=== PATIENT | male | born 1955 | race Caucasian/White ===

== ENCOUNTER → 2016-10-18 | Outpatient (CLI) | payer OTHER ==
[~2016-10-18] MED LIST: ALLO100T PO; CLON.1 PO; CLON0.1T PO; DULC100C PO; FURO20TA PO; GLIP5TAB8 PO; GLUC750T13; HYDR25TA35 PO; PRAV40TA2 PO
[2016-10-18 13:47] LABS: ANION GAP 7 MEQ/L (5-15); BICARBONATE 29.2 MEQ/L (21.0-32.0); BLOOD UREA NITROGEN 26 MG/DL (7-18); CHLORIDE 103 MEQ/L (98-107); GLOMERULAR FILTRATION RATE 24 ML/MIN (>89); POTASSIUM 4.5 MEQ/L (3.5-5.1); SODIUM (NA) 139 MEQ/L (136-145)
[2016-10-18 17:20] LABS: HEMOGLOBIN A1b 2.5 %; HEMOGLOBIN Ao 80.6 %; HEMOGLOBIN P3 4.7 %
== END ==
LOC: CLAB 13:07
PROVIDERS: ATTEND Physician Assistant Medical
DX: N18.9 Chronic kidney disease, unspecified (principal); E11.9 Type 2 diabetes mellitus without complications
CPT/HCPCS: 36415; 80048; 83036

== ENCOUNTER → 2016-10-24 | Outpatient (CLI) | payer OTHER ==
[~2016-10-24] MED LIST changes: -CLON.1 PO
== END ==
LOC: CLAB 13:17
PROVIDERS: ATTEND Nurse Practitioner Family
DX: E78.5 Hyperlipidemia, unspecified (principal)
CPT/HCPCS: 36415; 80061

== ENCOUNTER → 2016-12-06 | Outpatient (CLI) | payer OTHER ==
[~2016-12-06] MED LIST changes: +ATEN50TA PO; +CALC0.5C6 PO; +FURO80TA PO; +GEMF600T PO; +LISI40TA PO
[2016-12-06 13:18] LABS: ALKALINE PHOSPHATASE 74 U/L (45-117); ALT (GPT) 22 U/L (12-78); ANION GAP 12 MEQ/L (5-15); AST (GOT) 12 U/L (15-37); BICARBONATE 26.9 MEQ/L (21.0-32.0); BLOOD UREA NITROGEN 45 MG/DL (7-18); CHLORIDE 86 MEQ/L (98-107); GLOMERULAR FILTRATION RATE 18 ML/MIN (>89); GLUCOSE,FASTING 132 MG/DL (74-99); POTASSIUM 3.7 MEQ/L (3.5-5.1); SODIUM (NA) 125 MEQ/L (136-145); TOTAL BILIRUBIN ADULT 0.4 MG/DL (0.2-1.0)
[2016-12-06 13:54] LABS: CREAT 24 TIMED 48.9 MG/DL; URINE TOTAL PROTEIN TIMED 156.7 MG/DL
== END ==
LOC: CLAB 12:15
PROVIDERS: ATTEND Internal Medicine Nephrology
DX: R80.9 Proteinuria, unspecified (principal); E78.5 Hyperlipidemia, unspecified; N25.81 Secondary hyperparathyroidism of renal origin; E78.4 Other hyperlipidemia; I12.9 Hypertensive chronic kidney disease with stage 1 through stage 4 chronic kidney disease, or unspecified chronic kidney disease; N18.3 Chronic kidney disease, stage 3 (moderate); E11.22 Type 2 diabetes mellitus with diabetic chronic kidney disease
CPT/HCPCS: 36415; 80053; 82575; 83970; 84157

== ENCOUNTER → 2017-01-31 | Outpatient (CLI) | payer OTHER ==
[2017-01-31 15:39] LABS: BLOOD UREA NITROGEN 25 MG/DL (7-18); HDL CHOLESTEROL 33.1 MG/DL (40.0-60.0)
[2017-01-31 15:52] LABS: ANION GAP 7 MEQ/L (5-15); CHLORIDE 101 MEQ/L (98-107); GLOMERULAR FILTRATION RATE 27 ML/MIN (>89); POTASSIUM 4.2 MEQ/L (3.5-5.1); SODIUM (NA) 136 MEQ/L (136-145)
[2017-02-01 21:25] LABS: HEMOGLOBIN A1a 1.2 %; HEMOGLOBIN A1b 2.5 %; HEMOGLOBIN Ao 81.4 %; HEMOGLOBIN LA1C 2.3 %; HEMOGLOBIN P3 4.8 %
== END ==
LOC: CLAB 14:46
PROVIDERS: ATTEND Nurse Practitioner Family
DX: E78.5 Hyperlipidemia, unspecified (principal); E11.9 Type 2 diabetes mellitus without complications
CPT/HCPCS: 36415; 80048; 80061; 83036

== ENCOUNTER → 2017-02-21 | Outpatient (CLI) | payer OTHER ==
[~2017-02-21] MED LIST changes: -CLON0.1T PO; -FURO20TA PO; -GLUC750T13; -HYDR25TA35 PO; -PRAV40TA2 PO
[2017-02-21 11:27] LABS: HDL CHOLESTEROL 36.6 MG/DL (40.0-60.0)
== END ==
LOC: CLAB 10:13
PROVIDERS: ATTEND Nurse Practitioner Family
DX: E78.5 Hyperlipidemia, unspecified (principal)
CPT/HCPCS: 36415; 80061

== ENCOUNTER → 2017-05-10 | Outpatient (CLI) | payer OTHER ==
[2017-05-10 13:05] LABS: AUTOMATED NEUTROPHIL # 7.5 TH/MM3 (1.8-7.7); BASOPHIL # 0.1 TH/MM3 (0-0.2); BASOPHIL % 1.1 % (0.0-2.0); EOSINOPHIL # 0.6 TH/MM3 (0-0.4); EOSINOPHIL % 5.7 % (0.0-4.0); HEMATOCRIT 44.6 % (39.0-51.0); HEMO FLAGS DIFF FINAL; LYMPHOCYTE # 2.3 TH/MM3 (1.0-4.8); MEAN CORPUSCULAR HEMOGLOBIN 29.8 PG (27.0-34.0); MEAN CORPUSCULAR HGB CONC 32.4 % (32.0-36.0); MONO % 6.5 % (0.0-8.0); NEUT % 66.7 % (16.0-70.0); PLATELET COUNT 331 TH/MM3 (150-450); RED BLOOD COUNT 4.85 MIL/MM3 (4.50-5.90); RED CELL DISTRIBUTION WIDTH 15.3 % (11.6-17.2); WHITE BLOOD COUNT 11.3 TH/MM3 (4.0-11.0)
[2017-05-10 13:11] LABS: HDL CHOLESTEROL 68.2 MG/DL (40.0-60.0); LDL CHOLESTEROL 146 MG/DL (0-99)
[2017-05-10 17:15] LABS: HEMOGLOBIN A1a 1.2 %; HEMOGLOBIN A1b 1.8 %; HEMOGLOBIN LA1C 2.5 %; HEMOGLOBIN P3 5.8 %
== END ==
LOC: CLAB 12:31
PROVIDERS: ATTEND Nurse Practitioner Family
DX: E11.9 Type 2 diabetes mellitus without complications (principal); E78.5 Hyperlipidemia, unspecified; I10 Essential (primary) hypertension; N25.81 Secondary hyperparathyroidism of renal origin; N18.4 Chronic kidney disease, stage 4 (severe)
CPT/HCPCS: 36415; 80061; 83036; 83970; 85025

== ENCOUNTER 2018-06-07 23:25 | Inpatient (IN) ==
[2018-06-08] MEDS ORDERED: Labetalol HCl Inj 100 MG/20 ML Vial IV.PUSH ONE
--- NOTE | 2018-06-08 00:11 | ED ---
HPI General Chief complaint: Abdominal Pain Stated complaint: diff breathing, upper abd pain Time Seen by Provider: 06/07/18 23:43 Source: patient Mode of arrival: ambulatory Limitations: no limitations History of Present Illness HPI narrative: Patient is a 63 year old male with history of hypertension, presents to the ER with multiple complaints. Patient reports that 1 week ago, he thought that he had food poisening. Patient reports that he has been having increased nausea and vomiting and diarrhea. It has been persistent for the past week, and patient thought that it would get better. Reports that it's not getting any better. Reports that in addition, he has been having chest pain and shortness of breath. Reports that the chest pain is substernal in nature. Reports that it feels like a "pressure" to his chest. Reports that the chest pain has been intermittent in nature - he really hasn't paid too much attention to it as "I just got used to having it," reports that it just fees like a dull ache at this time. Nothing makes the chest pain better or worse. He does not have a door slinger - he does not have a PCP. Reports "I just pay someone money to refill my medications. " He has been compliant with his blood pressure medications. Related Data Home Medications Medication Instructions Recorded Confirmed amlodipine 10 mg PO DAILY 06/08/18 06/08/18 atenolol 50 mg PO DAILY 06/08/18 06/08/18 lisinopril 40 mg PO DAILY 06/08/18 06/08/18 Allergies Allergy/AdvReac Type Severity Reaction Status Date / Time No Known Allergies Allergy Uncoded 03/09/17 14:30 Review of Systems ROS: all other systems reviewed are negative PMFSH History History Provided By: Patient Medical History Medical History Hypertension (Acute) Surgical History Surgical History History of appendectomy (Acute) Social History Social History Substance History: No History of Abuse Smoking Status: Former smoker How Often Do You Have a Drink Containing Alcohol: 2 to 4 times a month Recent Travel in [facility] within the Last 8 Weeks: No Recent Out of Country Travel within the Last 8 Weeks: No Exam Narrative Exam Narrative: GENERAL: Moderate distress SKIN: Focused skin assessment warm/dry. HEAD: Atraumatic. Normocephalic. EYES: Pupils equal and round. No scleral icterus. No injection or drainage. ENT: No nasal bleeding or discharge. Mucous membranes pink and moist. NECK: Trachea midline. No JVD. CARDIOVASCULAR: Regular rate and rhythm. No murmur appreciated. RESPIRATORY: No accessory muscle use. Clear to auscultation. Breath sounds equal bilaterally. GASTROINTESTINAL: Abdomen soft, non-tender, nondistended. Hepatic and splenic margins not palpable. MUSCULOSKELETAL: No obvious deformities. No clubbing. No cyanosis. No edema. NEUROLOGICAL: Awake and alert. No obvious cranial nerve deficits. Motor grossly within normal limits. Normal speech. PSYCHIATRIC: Appropriate mood and affect; insight and judgment normal. Course Initial Documented Vital Signs Temperature 97.3 F L 06/07/18 23:32 Pulse Rate 47 L 06/07/18 23:32 Respiratory Rate 20 06/07/18 23:32 Blood Pressure 244/115 H 06/07/18 23:32 Pulse Oximetry 100 06/07/18 23:32 Last Documented Vital Signs Temperature 97.3 F L 06/07/18 23:32 Pulse Rate 53 L 06/08/18 05:45 Respiratory Rate 16 06/08/18 05:45 Blood Pressure 147/80 H 06/08/18 05:45 Pulse Oximetry 99 06/08/18 05:45 Medical Decision Making [facility] Narrative Medical decision making narrative: During the course of the patients emergency department visit, the patients history, examination, and differential diagnosis were reviewed with the patient. The patient was placed on a personnel monitor with oximetry and frequent blood pressure monitoring. The patient had an IV access obtained and blood work sent for analysis. The patient was initially provided aspirin as well as nitro for pain relief The patients laboratory studies were reviewed White blood cell 13.9, hemoglobin 15.1, hematocrit 45.6, platelets 237 Ddimer 1.28 Sodium 136, chloride 99, potassium 3.5, BUN 36, creatinine 2.8 -patient with history of chronic kidney disease. Troponin x2 was less than 0.02 CT of the abdomen pelvis showed no acute findings. Because patient had a positive d-dimer, VQ scan as well as Doppler ultrasounds were ordered. Doppler ultrasound showed no evidence of DVT. Patient is currently pending a VQ scan. Plan to admit the patient for observation as he does have moderate ST segment depressions on his EKG which is a change from his previous EKGs from November 09, 2015. In addition, patient has been nauseous and has not been able to keep anything down for the past week, he does have generalized weakness with this. Plan for IV hydration during his observation status. Medical Screen Exam Complete: Yes Emergency Medical Condition: Yes Differential Diagnosis Differential Diagnosis: ACS, arrhythmia, electrolyte abnormality, gastritis, gastroenteritis, cholecystitis, pancreatitis, PE Lab Data Result diagrams: 06/08/18 00:05 06/08/18 00:05 Lab Results 06/08/18 06/08/18 06/08/18 Range/Units 00:05 00:05 00:05 WBC 13.9 H (4.0-11.0) th/mm3 RBC 4.82 (4.50-5.90) mil/mm3 Hgb 15.1 (13.0-17.0) gm/dL Hct 45.6 (39.0-51.0) % MCV 94.4 (80.0-100.0) fL MCH 31.3 (27.0-34.0) pg MCHC 33.1 (32.0-36.0) % RDW 19.1 H (11.6-17.2) % Plt Count 237 (150-450) th/mm3 MPV 7.9 (7.0-11.0) fL Neut % (Auto) 78.6 H (16.0-70.0) % Lymph % (Auto) 12.4 (9.0-44.0) % [place] % (Auto) 6.0 (0.0-8.0) % Eos % (Auto) 2.5 (0.0-4.0) % Baso % (Auto) 0.5 (0.0-2.0) % Neut # (Auto) 11.0 H (1.8-7.7) th/mm3 Lymph # (Auto) 1.7 (1.0-4.8) th/mm3 [place] # (Auto) 0.8 (0.0-0.9) th/mm3 Eos # (Auto) 0.3 (0.0-0.4) th/mm3 Baso # (Auto) 0.1 (0.0-0.2) th/mm3 WBC Differential . Differential Comment Auto diff final PT 10.6 (9.8-11.6) sec INR 1.0 Ratio APTT 28.0 (23.4-31.7) sec D-Dimer Quant (PE/DVT) 1.28 H (0.00-0.50) mg/L FEU Sodium (136-145) meq/L Potassium (3.5-5.1) meq/L Chloride (98-107) meq/L Carbon Dioxide (21.0-32.0) meq/L Anion Gap (5-15) meq/L BUN (7-18) mg/dL Creatinine (0.60-1.30) mg/dL Estimated GFR (>89) mL/min Random Glucose (74-106) mg/dL Calcium (8.5-10.1) mg/dL Magnesium (1.5-2.5) mg/dL Total Bilirubin (0.2-1.0) mg/dL AST (15-37) U/L ALT (12-78) U/L Alkaline Phosphatase (45-117) U/L Total Creatine Kinase (39-308) U/L Troponin I (0.02-0.05) ng/mL B-Natriuretic Peptide 213 H (0-100) pg/mL Total Protein (6.4-8.2) g/dL Albumin (3.4-5.0) g/dL Lipase (73-393) U/L Urine Color (Yellw/Straw) Urine Clarity (Clear) Urine pH (5.0-8.5) Ur Specific [place] (1.002-1.035) Urine Protein (Neg-Trace) mg/dL Urine Glucose (UA) (Negative) mg/dL Urine Ketones (Negative) mg/dL Urine Occult Blood (Negative) Urine Nitrate (Negative) Urine Bilirubin (Negative) Urine Urobilinogen (Less than 2) mg/dL Ur Leukocyte Esterase (Negative) Urine RBC (0-3) /hpf Urine WBC (0-5) /hpf Micro UA Comment Ur Microscopic Review Urine Culture Comments 06/08/18 06/08/18 06/08/18 Range/Units 00:05 03:35 04:32 WBC (4.0-11.0) th/mm3 RBC (4.50-5.90) mil/mm3 Hgb (13.0-17.0) gm/dL Hct (39.0-51.0) % MCV (80.0-100.0) fL MCH (27.0-34.0) pg MCHC (32.0-36.0) % RDW (11.6-17.2) % Plt Count (150-450) th/mm3 MPV (7.0-11.0) fL Neut % (Auto) (16.0-70.0) % Lymph % (Auto) (9.0-44.0) % [place] % (Auto) (0.0-8.0) % Eos % (Auto) (0.0-4.0) % Baso % (Auto) (0.0-2.0) % Neut # (Auto) (1.8-7.7) th/mm3 Lymph # (Auto) (1.0-4.8) th/mm3 [place] # (Auto) (0.0-0.9) th/mm3 Eos # (Auto) (0.0-0.4) th/mm3 Baso # (Auto) (0.0-0.2) th/mm3 WBC Differential Differential Comment PT (9.8-11.6) sec INR Ratio APTT (23.4-31.7) sec D-Dimer Quant (PE/DVT) (0.00-0.50) mg/L FEU Sodium 136 (136-145) meq/L Potassium 3.5 (3.5-5.1) meq/L Chloride 99 (98-107) meq/L Carbon Dioxide 25.5 (21.0-32.0) meq/L Anion Gap 12 (5-15) meq/L BUN 36 H (7-18) mg/dL Creatinine 2.88 H (0.60-1.30) mg/dL Estimated GFR 22 L (>89) mL/min Random Glucose 106 (74-106) mg/dL Calcium 7.8 L (8.5-10.1) mg/dL Magnesium 1.9 (1.5-2.5) mg/dL Total Bilirubin 0.5 (0.2-1.0) mg/dL AST 33 (15-37) U/L ALT 51 (12-78) U/L Alkaline Phosphatase 70 (45-117) U/L Total Creatine Kinase 51 32 L (39-308) U/L Troponin I Less than 0.02 L Less than 0.02 L (0.02-0.05) ng/mL B-Natriuretic Peptide (0-100) pg/mL Total Protein 6.7 (6.4-8.2) g/dL Albumin 3.0 L (3.4-5.0) g/dL Lipase 367 (73-393) U/L Urine Color Yellow (Yellw/Straw) Urine Clarity Clear (Clear) Urine pH 6.0 (5.0-8.5) Ur Specific [place] 1.012 (1.002-1.035) Urine Protein 500 or greater (Neg-Trace) mg/dL Urine Glucose (UA) 50 (Negative) mg/dL Urine Ketones Trace H (Negative) mg/dL Urine Occult Blood Negative (Negative) Urine Nitrate Negative (Negative) Urine Bilirubin Negative (Negative) Urine Urobilinogen Less than 2 (Less than 2) mg/dL Ur Leukocyte Esterase Negative (Negative) Urine RBC 1 (0-3) /hpf Urine WBC 1 (0-5) /hpf Micro UA Comment Culture not ind Ur Microscopic Review Not Reportable Urine Culture Comments Culture not ind Imaging Data Radiologist's impression: Chest X-Ray 06/08/18 00:02 CONCLUSION: Cardiomegaly. No acute pulmonary disease. Venous Doppler Study 06/08/18 03:35 CONCLUSION: No evidence of deep venous thrombosis. Abdomen/Pelvis CT 06/08/18 05:40 CONCLUSION: No evidence of acute abdominal or pelvic process. No masses are identified. 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 ECG Data EKG Prior to Arrival: No Attestation: I personally reviewed and interpreted this ECG as follows: Interpretation: EKG at 2354 shows sinus bradycardia at 47BMP, qt/qtc: 470/431, st seg depression V3-V6 Discharge Plan Discharge Disposition Patient Disposition: 30 Still Patient Discharge Condition Condition: Fair Discharge Details Diagnosis: ST segment changes on electrocardiogram, Chest pain, Nausea & vomiting Physicians Team ED Provider: Iris Morales Primary Care Provider: Primary Care KamilaiNancy Rxs /Orders / Referrals /Forms Prescriptions: No Action amlodipine 10 mg Tablet 10 mg PO DAILY RF: 0 lisinopril 40 mg Tablet 40 mg PO DAILY RF: 0 atenolol 50 mg Tablet 50 mg PO DAILY RF: 0 Status ED Status: With Doctor
[2018-06-08 00:19] LABS: Baso # (Auto) 0.1 th/mm3 (0.0-0.2); Baso % (Auto) 0.5 % (0.0-2.0); Eos # (Auto) 0.3 th/mm3 (0.0-0.4); Eos % (Auto) 2.5 % (0.0-4.0); Hematocrit 45.6 % (39.0-51.0); Hemoglobin 15.1 gm/dL (13.0-17.0); Lymph # (Auto) 1.7 th/mm3 (1.0-4.8); Lymph % (Auto) 12.4 % (9.0-44.0); Mean Corpuscular HGB Conc 33.1 % (32.0-36.0); Mean Corpuscular Hemoglobin 31.3 pg (27.0-34.0); Mean Corpuscular Volume 94.4 fL (80.0-100.0); Mean Platelet Volume 7.9 fL (7.0-11.0); Mono # (Auto) 0.8 th/mm3 (0.0-0.9); Neut % (Auto) 78.6 % (16.0-70.0); Platelet Count 237 th/mm3 (150-450); Red Blood Count 4.82 mil/mm3 (4.50-5.90); Red Cell Distribution Width 19.1 % (11.6-17.2); White Blood Count 13.9 th/mm3 (4.0-11.0)
[2018-06-08 00:36] LABS: D-Dimer 1.28 mg/L FEU (0.00-0.50); Prothrombin Time 10.6 sec (9.8-11.6)
[2018-06-08 00:42] LABS: Alanine Aminotransferase 51 U/L (12-78); Anion Gap 12 meq/L (5-15); Aspartate Aminotransferase 33 U/L (15-37); Blood Urea Nitrogen 36 mg/dL (7-18); Calcium 7.8 mg/dL (8.5-10.1); Carbon Dioxide 25.5 meq/L (21.0-32.0); Chloride 99 meq/L (98-107); Glomerular Filtration Rate 22 mL/min (>89); Glucose,Random 106 mg/dL (74-106); Lipase 367 U/L (73-393); Magnesium 1.9 mg/dL (1.5-2.5); Potassium 3.5 meq/L (3.5-5.1); Sodium 136 meq/L (136-145)
[2018-06-08 00:46] LABS: Alkaline Phosphatase 70 U/L (45-117); Total Protein 6.7 g/dL (6.4-8.2)
[2018-06-08 00:51] LABS: Creatine Kinase 51 U/L (39-308)
--- NOTE | 2018-06-08 00:53 | XR ---
EXAM DATE: 06/08/2018 12:30 AM EDT AGE/SEX: 63 years / Male INDICATIONS: Chest pain, shortness of breath for 1 week CLINICAL DATA: This is the patient's initial encounter. Patient reports that signs and symptoms have been present for 1 week and indicates a pain score of 8/10. MEDICAL/SURGICAL HISTORY: None. None. COMPARISON: No prior exams available for comparison. FINDINGS: The cardiac silhouette is enlarged in transverse diameter. The lungs are free of acute parenchymal op acity. No effusions are identified. CONCLUSION: Cardiomegaly. No acute pulmonary disease. Electronically signed by: Carl Mcclain MD 06/08/2018 12:51 AM EDT
[2018-06-08 04:03] LABS: Bilirubin,Urine Negative (Negative); Clarity,Urine Clear (Clear); Color,Urine Yellow (Yellw/Straw); Glucose,Urine (UA) 50 mg/dL (Negative); Leukocyte Esterase,Urine Negative (Negative); Nitrite,Urine Negative (Negative); Specific Gravity,Urine 1.012 (1.002-1.035)
[2018-06-08 05:18] LABS: Creatine Kinase 32 U/L (39-308)
--- NOTE | 2018-06-08 05:20 | US ---
EXAM DATE: 06/08/2018 5:02 AM EDT AGE/SEX: 63 years / Male INDICATIONS: Difficulty breathing. CLINICAL DATA: This is the patient's initial encounter. Patient reports that signs and symptoms have been present for 1 day and indicates a pain score of 0/10. MEDICAL/SURGICAL HISTORY: . Hypertension. Former smoker. . Appendectomy. COMPARISON: No prior exams available for comparison. TECHNIQUE: Venous ultrasound of both lower extremities was performed from the inguinal ligament to t he proximal calf. Real-time, color Doppler and spectral tracing, compression and augmentation techni ques were used. FINDINGS: Right Leg: Normal compression of the deep venous system from the inguinal region to the proximal delbert f. No echogenic clot is seen. Normal response of the venous system to augmentation and respiration. Left Leg: Normal compression of the deep venous system from the inguinal region to the proximal calf . No echogenic clot is seen. Normal response of the venous system to augmentation and respiration. Other: None. CONCLUSION: No evidence of deep venous thrombosis. Electronically signed by: Carl Mcclain MD 06/08/2018 5:18 AM EDT
[2018-06-08] MEDS ORDERED: Sod Chloride 0.9% Inj 1,000 ML IV.SIG SCH (06:00)
--- NOTE | 2018-06-08 06:22 | CT ---
EXAM DATE: 06/08/2018 6:05 AM EDT AGE/SEX: 63 years / Male INDICATIONS: Epigastric pain, nausea and vomiting. CLINICAL DATA: This is the patient's initial encounter. Patient reports that signs and symptoms have been present for 1 week and indicates a pain score of 5/10. MEDICAL/SURGICAL HISTORY: Hypertension. Appendectomy. RADIATION DOSE: 9.90 CTDI (mGy) COMPARISON: [facility] – [place] ABDOMEN & PELVIS W/O CONTRAST, 10/03/2015. . TECHNIQUE: Multiple contiguous axial images were obtained through the abdomen. Images were obtained using multiple row detector helical technique. Using automated exposure control and adjustment of the mA and/or kV according to patient size, radiation dose was kept as low as reasonably achievable to o btain optimal diagnostic quality images. DICOM format image data is available electronically for rev iew and comparison. FINDINGS: Examination of the lung bases demonstrates no abnormality. No pleural fluid is identified. No pulmona ry nodules are present. The liver and spleen are normal in size and no focal defects are identified. The gallbladder and pancreas are unremarkable. No intrahepatic or extrahepatic ductal dilatation is seen. The adrenal glands and kidneys appear normal bilaterally. No hydronephrosis or mass lesions ar e identified. 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 Examination of the pelvis demonstrates no evidence of free fluid or pelvic mass. No abnormally enlarg ed inguinal or retroperitoneal lymph nodes are present. The bladder is unremarkable. There is diverti culosis without evidence of diverticulitis. CONCLUSION: No evidence of acute abdominal or pelvic process. No masses are identified. 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 Electronically signed by: Carl Mcclain MD 06/08/2018 6:21 AM EDT
[2018-06-08] MEDS ORDERED: Morphine Inj 4 MG/ML Vial IV.PUSH PRN (06:40)
[2018-06-08] MEDS ORDERED: Acetaminophen 325 MG Tablet PO PRN (06:40)
[2018-06-08] MEDS ORDERED: Bisacodyl 10 MG Supp RECTAL PRN (06:40)
--- NOTE | 2018-06-08 06:47 | NM ---
EXAM DATE: 06/08/2018 6:44 AM EDT AGE/SEX: 63 years / Male INDICATIONS: Embolus. CLINICAL DATA: This is the patient's initial encounter. Patient reports that signs and symptoms have been present for 1 day and indicates a pain score of 0/10. MEDICAL/SURGICAL HISTORY: Hypertension. Appendectomy. COMPARISON: No prior exams available for comparison. DOSE: 1.6 mCi Tc99m DTPA aerosol 8.7 mCi Tc99m MAA IV TECHNIQUE: Following five minutes of tidal breathing of DTPA aerosol, planar images of the lungs wer e performed in eight projections. The patient was then injected with MAA, and eight-view perfusion s can was performed. FINDINGS: There is a homogeneous pattern of aerosol delivery to the periphery of both lungs. No focal ventilat ory defects are seen. The perfusion lung scan demonstrates a homogenous pattern of uptake in both lungs. No segmental or s ubsegmental defects are seen. CONCLUSION: 1. Low probably for pulmonary embolism Electronically signed by: Carl Mcclain MD 06/08/2018 6:46 AM EDT
[2018-06-08] MEDS ORDERED: Sodium Chloride 0.9% 2 ML Flush PRN IV.FLUSH (07:00)
[2018-06-08 07:41] LABS: Chol/HDL Ratio 3.88 Ratio; HDL Cholesterol 47.6 mg/dL (40.0-60.0)
[2018-06-08 07:45] LABS: Creatine Kinase 34 U/L (39-308)
[2018-06-08] MEDS ORDERED: Metoprolol Tartrate 25 MG Tablet PO SCH (09:00)
[2018-06-08] MEDS: Senna/Docusate Sodium 8.6/50 MG Tablet PO SCH ×2 (09:19→21:01)
[2018-06-08] MEDS: Sodium Chloride 0.9% 2 ML Flush BID IV.FLUSH SCH ×2 (09:19→21:01)
--- NOTE | 2018-06-08 11:00 | P.HP ---
History of Present Illness Primary Care Physician: No Primary Care Physician History of Present Illness: 63-year-old male presented to the ER overnight with complaint of chest pain following 1 week of nausea vomiting and diarrhea. Initial screening in the ER showed an EKG that demonstrated mild ST depressions. He was given Protonix and IV fluid bolus with Zofran which resolved his chest pain and he is feeling better this morning. He states that his nausea and vomiting and lack of intake caused his blood pressure to go up partly from not having blood pressure meds but also from the stress. He reports that for the last year he has had similar but less severe nausea vomiting and diarrhea episodes nearly every week. He denies cough, fever, upper respiratory congestion. He denies weight gain or weight loss, denies any ingestion of sour food, reports he did have 2 glasses of wine today before the onset of this episode of nausea and vomiting. Review of Systems All other systems reviewed negative except as stated in HPI PMFSH - History History Provided By: Patient - Medical History Medical History: Medical History (Last Updated 06/08/18 @ 10:50 by Alfredo Harris MD) Chronic kidney disease Gout Hemorrhoids Hypertension - Surgical History Surgical History: Surgical History (Last Reviewed 06/08/18 @ 00:25 by Sonam Jones) History of appendectomy - Family History Family History: Family History (Last Updated 06/08/18 @ 10:51 by Alfredo Harris MD) Other Coronary artery disease Hypertension Type 2 diabetes mellitus - Tobacco History Smoking Status: Former smoker - Alcohol History How Often Do You Have a Drink Containing Alcohol: 2 to 4 times a month - Substance Use History Substance History: No History of Abuse - Travel History Recent Travel in the [place] Within the Last 8 Weeks: No Recent Travel Out of the Country Within the Last 8 Weeks: No - Immunization History Tetanus Immunization: Unsure Medications and Allergies Active Medications: Active Medications Acetaminophen (Tylenol) 650 mg PO Q4H PRN PRN Reason: Temp > 100.4 Al Hydroxide/Mg Hydroxide (Milk Of Magnesia Liq) 30 ml PO Q12H PRN PRN Reason: Mild Constipation Aspirin (Aspirin) 325 mg PO DAILY KASSANDRA Bisacodyl (Dulcolax Supp) 10 mg RECTAL DAILY PRN PRN Reason: SEVERE CONSITIPATION Sodium Chloride (Ns Inj) 1,000 mls @ 84 mls/hr IV.CONT .[id number] KASSANDRA Lactulose (Lactulose Liq) 30 ml PO DAILY PRN PRN Reason: SEVERE CONSITIPATION Metoprolol Tartrate (Lopressor) 25 mg PO BID [facility] Last Admin: 06/08/18 09:18 Dose: 25 mg Morphine Sulfate (Morphine Inj) 2 mg IV.PUSH Q4H PRN PRN Reason: PAIN 6-10 Ondansetron HCl (Zofran Inj) 4 mg IV.PUSH Q6H PRN PRN Reason: NAUSEA OR VOMITING Pravastatin Sodium (Pravachol) 40 mg PO DAILY [facility] Last Admin: 06/08/18 09:18 Dose: 40 mg Senna/Docusate Sodium (Leda-Colace) 1 tab PO BID [facility] Last Admin: 06/08/18 09:19 Dose: Not Given Sennosides (Senokot) 17.2 mg PO Q12H PRN PRN Reason: Moderate Constipation Sodium Chloride (Ns Flush) 2 ml IV.FLUSH BID [facility] Last Admin: 06/08/18 09:19 Dose: 2 ml Sodium Chloride (Ns Flush) 2 ml IV.FLUSH PRN PRN PRN Reason: FLUSH AFTER USING IV ACCESS Allergies Allergy/AdvReac Type Severity Reaction Status Date / Time No Known Allergies Allergy Uncoded 03/09/17 14:30 Home Medications Medication Instructions Recorded Confirmed Type amlodipine 10 mg PO DAILY 06/08/18 06/08/18 History atenolol 50 mg PO DAILY 06/08/18 06/08/18 History lisinopril 40 mg PO DAILY 06/08/18 06/08/18 History Exam Vital signs: Vital Signs 06/07/18 23:32 06/07/18 23:35 06/08/18 00:25 Temperature 97.3 F L Pulse Rate 47 L 53 L 47 L Respiratory Rate 20 16 16 Blood Pressure 244/115 H 212/114 H 209/99 H Pulse Oximetry 100 100 100 06/08/18 00:32 06/08/18 00:37 06/08/18 00:47 Temperature Pulse Rate 51 L 50 L 51 L Respiratory Rate 16 16 16 Blood Pressure 178/91 H 141/91 H 171/100 H Pulse Oximetry 100 98 97 06/08/18 01:59 06/08/18 05:45 06/08/18 07:40 Temperature Pulse Rate 49 L 53 L 50 L Respiratory Rate 16 16 17 Blood Pressure 196/99 H 147/80 H 195/90 H Pulse Oximetry 99 99 06/08/18 09:20 Temperature Pulse Rate 45 L Respiratory Rate 18 Blood Pressure 197/94 H Pulse Oximetry 98 Intake & Output 06/07/18 06/08/18 06/08/18 18:59 06:59 18:59 Intake Total 1000 / 1000 Balance 1000 / 1000 Weight 90.718 kg Intake: IV 1000 / 1000 NS Inj 1,000 ML @ 1000 mls/hr 1000 / 1000 IV.SIG BOLUS KASSANDRA Rx#:[id number] Narrative: GENERAL: AAOx3, no acute distress, adequate nutrition SKIN: Warm and dry, no rashes. HEAD: Atraumatic. Normocephalic. EYES: Pupils equal, round, reactive to light. No scleral icterus. No injection or drainage. ENT: No nasal bleeding or discharge. Moist mucous membranes. Nonerythematous oropharynx. NECK: Trachea midline. No JVD. Thyroid size within normal limits. CARDIOVASCULAR: Regular rate and rhythm. No murmur, no gallops, no rubs. RESPIRATORY: Clear and equal to auscultation bilaterally. No crackles, no wheezes. No accessory muscle use. GASTROINTESTINAL: Abdomen soft, non-tender, nondistended, normal active bowel sounds. Hepatic and splenic margins not palpable. MUSCULOSKELETAL: Extremities without clubbing or cyanosis. No obvious deformities. No edema. Palpable cord on right lateral ankle NEUROLOGICAL: Awake and alert. No obvious cranial nerve deficits. Motor grossly within normal limits. No focal deficits. Five out of 5 muscle strength in the arms and legs. Normal speech. PSYCHIATRIC: Appropriate mood and affect; insight and judgment normal. Results - Labs CBC & Chem 7: 06/08/18 00:05 06/08/18 00:05 Labs: Laboratory Results - last 24 hr 06/08/18 06/08/18 06/08/18 00:05 00:05 00:05 WBC 13.9 H RBC 4.82 Hgb 15.1 Hct 45.6 MCV 94.4 MCH 31.3 MCHC 33.1 RDW 19.1 H Plt Count 237 MPV 7.9 Neut % (Auto) 78.6 H Lymph % (Auto) 12.4 Alcorn % (Auto) 6.0 Eos % (Auto) 2.5 Baso % (Auto) 0.5 Neut # (Auto) 11.0 H Lymph # (Auto) 1.7 Alcorn # (Auto) 0.8 Eos # (Auto) 0.3 Baso # (Auto) 0.1 WBC Differential . Differential Comment Auto diff final PT 10.6 INR 1.0 APTT 28.0 D-Dimer Quant (PE/DVT) 1.28 H Sodium Potassium Chloride Carbon Dioxide Anion Gap BUN Creatinine Estimated GFR Random Glucose Calcium Magnesium Total Bilirubin AST ALT Alkaline Phosphatase Total Creatine Kinase Troponin I B-Natriuretic Peptide 213 H Total Protein Albumin Triglycerides Cholesterol LDL Cholesterol, Calc HDL Cholesterol Cholesterol/HDL Ratio Lipase Urine Color Urine Clarity Urine pH Ur Specific Lutsen Urine Protein Urine Glucose (UA) Urine Ketones Urine Occult Blood Urine Nitrate Urine Bilirubin Urine Urobilinogen Ur Leukocyte Esterase Urine RBC Urine WBC Micro UA Comment Ur Microscopic Review Urine Culture Comments 06/08/18 06/08/18 06/08/18 00:05 03:35 04:32 WBC RBC Hgb Hct MCV MCH MCHC RDW Plt Count MPV Neut % (Auto) Lymph % (Auto) Alcorn % (Auto) Eos % (Auto) Baso % (Auto) Neut # (Auto) Lymph # (Auto) Alcorn # (Auto) Eos # (Auto) Baso # (Auto) WBC Differential Differential Comment PT INR APTT D-Dimer Quant (PE/DVT) Sodium 136 Potassium 3.5 Chloride 99 Carbon Dioxide 25.5 Anion Gap 12 BUN 36 H Creatinine 2.88 H Estimated GFR 22 L Random Glucose 106 Calcium 7.8 L Magnesium 1.9 Total Bilirubin 0.5 AST 33 ALT 51 Alkaline Phosphatase 70 Total Creatine Kinase 51 32 L Troponin I Less than 0.02 L Less than 0.02 L B-Natriuretic Peptide Total Protein 6.7 Albumin 3.0 L Triglycerides Cholesterol LDL Cholesterol, Calc HDL Cholesterol Cholesterol/HDL Ratio Lipase 367 Urine Color Yellow Urine Clarity Clear Urine pH 6.0 Ur Specific [place] 1.012 Urine Protein 500 or greater Urine Glucose (UA) 50 Urine Ketones Trace H Urine Occult Blood Negative Urine Nitrate Negative Urine Bilirubin Negative Urine Urobilinogen Less than 2 Ur Leukocyte Esterase Negative Urine RBC 1 Urine WBC 1 Micro UA Comment Culture not ind Ur Microscopic Review Not Reportable Urine Culture Comments Culture not ind 06/08/18 06/08/18 06:45 06:45 WBC RBC Hgb Hct MCV MCH MCHC RDW Plt Count MPV Neut % (Auto) Lymph % (Auto) Alcorn % (Auto) Eos % (Auto) Baso % (Auto) Neut # (Auto) Lymph # (Auto) Alcorn # (Auto) Eos # (Auto) Baso # (Auto) WBC Differential Differential Comment PT INR APTT D-Dimer Quant (PE/DVT) Sodium Potassium Chloride Carbon Dioxide Anion Gap BUN Creatinine Estimated GFR Random Glucose Calcium Magnesium Total Bilirubin AST ALT Alkaline Phosphatase Total Creatine Kinase 34 L Troponin I Less than 0.02 L Cancelled B-Natriuretic Peptide Total Protein Albumin Triglycerides 230 H Cholesterol 185 LDL Cholesterol, Calc 91 HDL Cholesterol 47.6 Cholesterol/HDL Ratio 3.88 Lipase Urine Color Urine Clarity Urine pH Ur Specific [place] Urine Protein Urine Glucose (UA) Urine Ketones Urine Occult Blood Urine Nitrate Urine Bilirubin Urine Urobilinogen Ur Leukocyte Esterase Urine RBC Urine WBC Micro UA Comment Ur Microscopic Review Urine Culture Comments - Imaging Impressions Chest X-Ray 06/08/18 00:02 CONCLUSION: Cardiomegaly. No acute pulmonary disease. Pulmonary Perfusion Imaging 06/08/18 03:35 CONCLUSION: 1. Low probably for pulmonary embolism Venous Doppler Study 06/08/18 03:35 CONCLUSION: No evidence of deep venous thrombosis. Abdomen/Pelvis CT 06/08/18 05:40 CONCLUSION: No evidence of acute abdominal or pelvic process. No masses are identified. 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 Caprini VTE Risk Assessment Caprini VTE Risk Assessment: Moderate/High Risk (score >= 2) Caprini Risk Assessment Model: Point Value = 1 Point Value = 2 Point Value = 3 Point Value = 5 Age 41-60 Minor surgery BMI > 25 kg/m2 Swollen legs Varicose veins or History of unexplained or recurrent spontaneous Oral contraceptives or hormone replacement Sepsis (< 1 month) Serious lung disease, including pneumonia (< 1 month) Abnormal pulmonary function Acute myocardial infarction Congestive heart failure (< 1 month) History of inflammatory bowel disease Medical patient at bed rest Age 61-74 Arthroscopic surgery Major open surgery (> 45 min) Laparoscopic surgery (> 45 min) Malignancy Confined to bed (> 72 hours) Immobilizing plaster cast Central venous access Age >= 75 History of VTE Family history of VTE Factor V Leiden Prothrombin [id number] Lupus anticoagulant Anticardiolipin antibodies Elevated serum homocysteine Heparin-induced thrombocytopenia Other congenital or acquired thrombophilia Stroke (< 1 month) Elective arthroplasty Hip, pelvis, or leg fracture Acute spinal cord injury (< 1 month) Prophylaxis Regimen: Total Risk Factor Score Risk Level Prophylaxis Regimen 0-1 Low Early ambulation 2 Moderate Order ONE of the following: *Sequential Compression Device (SCD) *Heparin 5000 units SQ BID 3-4 Higher Order ONE of the following medications: *Heparin 5000 units SQ TID *Enoxaparin/Lovenox 40 mg SQ daily (WT < 150 kg, CrCl > 30 mL/min) *Enoxaparin/Lovenox 30 mg SQ daily (WT < 150 kg, CrCl > 10-29 mL/min) *Enoxaparin/Lovenox 30 mg SQ BID (WT < 150 kg, CrCl > 30 mL/min) AND/OR *Sequential Compression Device (SCD) 5 or more Highest Order ONE of the following medications: *Heparin 5000 units SQ TID (Preferred with Epidurals) *Enoxaparin/Lovenox 40 mg SQ daily (WT < 150 kg, CrCl > 30 mL/min) *Enoxaparin/Lovenox 30 mg SQ daily (WT < 150 kg, CrCl > 10-29 mL/min) *Enoxaparin/Lovenox 30 mg SQ BID (WT < 150 kg, CrCl > 30 mL/min) AND *Sequential Compression Device (SCD) Assessment and Plan - Plan Chest pain Atypical chest pain, questionable gastritis versus cardiac There were 0.[address] changes demonstrated on initial EKG, but possible repolarization effect Patient is currently chest pain-free after some hydration and food with Zofran assisting Cardiology consulted to review EKG and assist with workup Nausea/vomiting/diarrhea Patient reports having these episodes occur approximately once per week, this current episode however lasted nearly 1 whole week He is appreciative of my offer to involve a welding machine operator plasma arc for further workup He is currently tolerating food as long as he has Zofran Onset was following 2 glasses of wine, no other food poisoning sources were identified, amylase is within normal limits Gastroenterology consult Acute on chronic kidney disease, dehydration Creatinine elevated on admission as well as BUN indicating dehydration We will continue IV fluid rehydration Follow labs in the morning for creatinine trend Hypertension Patient did not receive his home a.m. blood pressure meds We will resume all blood pressure medications and add clonidine for as needed use DVT prophylaxis Lovenox
[2018-06-08] MEDS: Lisinopril 20 MG Tablet PO SCH (11:57)
[2018-06-08] MEDS: Sod Chloride 0.9% Inj 1,000 ML IV.CONT SCH (12:01)
[2018-06-08] MEDS: amLODIPine 10 MG Tablet PO SCH (12:01)
[2018-06-08] MEDS: Atenolol 50 MG Tablet PO SCH (12:39)
--- NOTE | 2018-06-08 13:37 | P.CONGI ---
History of Present Illness Consult date: 06/08/18 Consult reason: Chest wall pain with nausea Chief complaint: Gastritis, Vomiting, Diarrhea, Chest Pain With ST History of Present Illness: This patient is a 63-year-old male who presented to the emergency room at [facility] on 06/08/2018 with complaining of burning chest wall pain times 1 week with nausea vomiting and loose stool. Patient was given Protonix and IV fluid bolus with Zofran which relieved his chest wall pain. Upon consultation patient endorses epigastric pressure with burning ongoing times 1 month. He is has associated decreased appetite and nausea. Patient also reports stools have been "black like charcoal" for 1 week. Patient denies ever having had EGD/colonoscopy in the past. He endorses frequent episodes of heartburn for which he takes [id number] antacids. Patient denies any dysphasia or odynophagia. Patient denies any use of NSAIDs or aspirin or blood thinners. Patient states he stops tobacco use 3 years ago but does state that he drinks 1-2 glasses of wine nightly with dinner. Surgical history includes appendectomy as a child. Medical history includes hypertension and gout. <Roberta Wolfe - Last Filed: 06/08/18 13:25> Review of Systems All other systems reviewed negative except as stated in HPI <Roberta Wolfe - Last Filed: 06/08/18 13:25> PMFSH - History History Provided By: Patient - Medical History Medical History: Medical History (Last Updated 06/08/18 @ 10:50 by Alfredo Harris MD) Chronic kidney disease Gout Hemorrhoids Hypertension - Surgical History Surgical History: Surgical History (Last Reviewed 06/08/18 @ 00:25 by Sonam Jones) History of appendectomy - Family History Family History: Family History (Last Updated 06/08/18 @ 10:51 by Alfredo Harris MD) Other Coronary artery disease Hypertension Type 2 diabetes mellitus - Tobacco History Smoking Status: Former smoker - Alcohol History How Often Do You Have a Drink Containing Alcohol: 2 to 4 times a month - Substance Use History Substance History: No History of Abuse - Travel History Recent Travel in the [place] Within the Last 8 Weeks: No Recent Travel Out of the Country Within the Last 8 Weeks: No - Immunization History Tetanus Immunization: Unsure <Roberta Wolfe - Last Filed: 06/08/18 13:25> - Medical History Medical History: Medical History (Last Updated 06/08/18 @ 10:50 by Alfredo Harris MD) Chronic kidney disease Gout Hemorrhoids Hypertension - Surgical History Surgical History: Surgical History (Last Reviewed 06/08/18 @ 00:25 by Sonam Jones) History of appendectomy - Family History Family History: Family History (Last Updated 06/08/18 @ 10:51 by Alfredo Harris MD) Other Coronary artery disease Hypertension Type 2 diabetes mellitus <Rodney Santos - Last Filed: 06/08/18 18:53> Medications and Allergies Active Medications: Active Medications Acetaminophen (Tylenol) 650 mg PO Q4H PRN PRN Reason: Temp > 100.4 Al Hydroxide/Mg Hydroxide (Milk Of Magnesia Liq) 30 ml PO Q12H PRN PRN Reason: Mild Constipation Amlodipine Besylate (Norvasc) 10 mg PO DAILY [facility] Last Admin: 06/08/18 12:01 Dose: 10 mg Aspirin (Aspirin) 325 mg PO DAILY [facility] Atenolol (Tenormin) 50 mg PO DAILY [facility] Last Admin: 06/08/18 12:39 Dose: Not Given Bisacodyl (Dulcolax Supp) 10 mg RECTAL DAILY PRN PRN Reason: SEVERE CONSITIPATION Clonidine HCl (Catapres) 0.1 mg PO Q6H PRN PRN Reason: SBP>180, DBP>95 Sodium Chloride (Ns Inj) 1,000 mls @ 84 mls/hr IV.CONT .[id number] [facility] Last Admin: 06/08/18 12:01 Dose: 84 mls/hr Lactulose (Lactulose Liq) 30 ml PO DAILY PRN PRN Reason: SEVERE CONSITIPATION Lisinopril (Prinivil) 40 mg PO DAILY [facility] Last Admin: 06/08/18 11:57 Dose: 40 mg Morphine Sulfate (Morphine Inj) 2 mg IV.PUSH Q4H PRN PRN Reason: PAIN 6-10 Ondansetron HCl (Zofran Inj) 4 mg IV.PUSH Q6H PRN PRN Reason: NAUSEA OR VOMITING Pantoprazole Sodium (Protonix) 40 mg PO DAILY [facility] Last Admin: 06/08/18 12:01 Dose: 40 mg Pravastatin Sodium (Pravachol) 40 mg PO DAILY [facility] Last Admin: 06/08/18 09:18 Dose: 40 mg Senna/Docusate Sodium (Leda-Colace) 1 tab PO BID [facility] Last Admin: 06/08/18 09:19 Dose: Not Given Sennosides (Senokot) 17.2 mg PO Q12H PRN PRN Reason: Moderate Constipation Sodium Chloride (Ns Flush) 2 ml IV.FLUSH BID [facility] Last Admin: 06/08/18 09:19 Dose: 2 ml Sodium Chloride (Ns Flush) 2 ml IV.FLUSH PRN PRN PRN Reason: FLUSH AFTER USING IV ACCESS <Roberta Wolfe - Last Filed: 06/08/18 13:25> Active Medications: Active Medications Acetaminophen (Tylenol) 650 mg PO Q4H PRN PRN Reason: Temp > 100.4 Al Hydroxide/Mg Hydroxide (Milk Of Magnesia Liq) 30 ml PO Q12H PRN PRN Reason: Mild Constipation Amlodipine Besylate (Norvasc) 10 mg PO DAILY [facility] Last Admin: 06/08/18 12:01 Dose: 10 mg Aspirin (Aspirin) 325 mg PO DAILY [facility] Atenolol (Tenormin) 50 mg PO DAILY [facility] Last Admin: 06/08/18 12:39 Dose: Not Given Bisacodyl (Dulcolax Supp) 10 mg RECTAL DAILY PRN PRN Reason: SEVERE CONSITIPATION Clonidine HCl (Catapres) 0.1 mg PO Q6H PRN PRN Reason: SBP>180, DBP>95 Sodium Chloride (Ns Inj) 1,000 mls @ 84 mls/hr IV.CONT .[id number] [facility] Last Admin: 06/08/18 12:01 Dose: 84 mls/hr Lactulose (Lactulose Liq) 30 ml PO DAILY PRN PRN Reason: SEVERE CONSITIPATION Lisinopril (Prinivil) 40 mg PO DAILY [facility] Last Admin: 06/08/18 11:57 Dose: 40 mg Morphine Sulfate (Morphine Inj) 2 mg IV.PUSH Q4H PRN PRN Reason: PAIN 6-10 Ondansetron HCl (Zofran Inj) 4 mg IV.PUSH Q6H PRN PRN Reason: NAUSEA OR VOMITING Pantoprazole Sodium (Protonix) 40 mg PO DAILY [facility] Last Admin: 06/08/18 12:01 Dose: 40 mg Pravastatin Sodium (Pravachol) 40 mg PO DAILY [facility] Last Admin: 06/08/18 09:18 Dose: 40 mg Senna/Docusate Sodium (Leda-Colace) 1 tab PO BID [facility] Last Admin: 06/08/18 09:19 Dose: Not Given Sennosides (Senokot) 17.2 mg PO Q12H PRN PRN Reason: Moderate Constipation Sodium Chloride (Ns Flush) 2 ml IV.FLUSH BID [facility] Last Admin: 06/08/18 09:19 Dose: 2 ml Sodium Chloride (Ns Flush) 2 ml IV.FLUSH PRN PRN PRN Reason: FLUSH AFTER USING IV ACCESS <Rodney Santos E - Last Filed: 06/08/18 18:53> Allergies Allergy/AdvReac Type Severity Reaction Status Date / Time No Known Allergies Allergy Uncoded 03/09/17 14:30 Home Medications Medication Instructions Recorded Confirmed Type amlodipine 10 mg PO DAILY 06/08/18 06/08/18 History atenolol 50 mg PO DAILY 06/08/18 06/08/18 History lisinopril 40 mg PO DAILY 06/08/18 06/08/18 History Exam Vital signs: Vital Signs 06/07/18 23:32 06/07/18 23:35 06/08/18 00:25 Temperature 97.3 F L Pulse Rate 47 L 53 L 47 L Respiratory Rate 20 16 16 Blood Pressure 244/115 H 212/114 H 209/99 H Pulse Oximetry 100 100 100 06/08/18 00:32 06/08/18 00:37 06/08/18 00:47 Temperature Pulse Rate 51 L 50 L 51 L Respiratory Rate 16 16 16 Blood Pressure 178/91 H 141/91 H 171/100 H Pulse Oximetry 100 98 97 06/08/18 01:59 06/08/18 05:45 06/08/18 07:40 Temperature Pulse Rate 49 L 53 L 50 L Respiratory Rate 16 16 17 Blood Pressure 196/99 H 147/80 H 195/90 H Pulse Oximetry 99 99 06/08/18 09:20 06/08/18 10:44 06/08/18 11:08 Temperature Pulse Rate 45 L 54 L 58 L Respiratory Rate 18 17 18 Blood Pressure 197/94 H 116/64 116/64 Pulse Oximetry 98 98 06/08/18 12:40 Temperature Pulse Rate 53 L Respiratory Rate 18 Blood Pressure 159/60 H Pulse Oximetry 98 Intake & Output 06/07/18 06/08/18 06/08/18 18:59 06:59 18:59 Intake Total 1000 / 1000 Balance 1000 / 1000 Weight 90.718 kg Intake: IV 1000 / 1000 NS Inj 1,000 ML @ 1000 mls/hr 1000 / 1000 IV.SIG BOLUS KASSANDRA Rx#:[id number] Other: # Voids 1 - Constitutional no acute distress - Routine HEENT Exam Head: Present: normocephalic - Routine Respiratory Exam Present: CTA bilaterally. Absent: accessory muscle use - Routine Abdominal Exam Present: soft, normoactive bowel sounds. Absent: tenderness, distended, guarding, firm - Routine Extremities Exam Absent: edema - Routine Skin Exam Present: dry, warm - Routine Neurological Exam Present: alert, oriented X3 <Wolfe,Roebrta - Last Filed: 06/08/18 13:25> Vital signs: Vital Signs 06/07/18 23:32 06/07/18 23:35 06/08/18 00:25 Temperature 97.3 F L Pulse Rate 47 L 53 L 47 L Respiratory Rate 20 16 16 Blood Pressure 244/115 H 212/114 H 209/99 H Pulse Oximetry 100 100 100 06/08/18 00:32 06/08/18 00:37 06/08/18 00:47 Temperature Pulse Rate 51 L 50 L 51 L Respiratory Rate 16 16 16 Blood Pressure 178/91 H 141/91 H 171/100 H Pulse Oximetry 100 98 97 06/08/18 01:59 06/08/18 05:45 06/08/18 07:40 Temperature Pulse Rate 49 L 53 L 50 L Respiratory Rate 16 16 17 Blood Pressure 196/99 H 147/80 H 195/90 H Pulse Oximetry 99 99 06/08/18 09:20 06/08/18 10:44 06/08/18 11:08 Temperature Pulse Rate 45 L 54 L 58 L Respiratory Rate 18 17 18 Blood Pressure 197/94 H 116/64 116/64 Pulse Oximetry 98 98 06/08/18 12:40 06/08/18 15:30 06/08/18 17:01 Temperature 98.1 F Pulse Rate 53 L 52 L 47 L Respiratory Rate 18 18 Blood Pressure 159/60 H 160/80 H Pulse Oximetry 98 100 Intake & Output 06/07/18 06/08/18 06/08/18 18:59 06:59 18:59 Intake Total 1000 / 1000 Balance 1000 / 1000 Weight 90.718 kg Intake: IV 1000 / 1000 NS Inj 1,000 ML @ 1000 mls/hr 1000 / 1000 IV.SIG BOLUS KASSANDRA Rx#:[id number] Other: # Voids 1 <Sa Tomud E - Last Filed: 06/08/18 18:53> Results - Labs CBC & Chem 7: 06/08/18 00:05 06/08/18 00:05 Labs: Laboratory Results - last 24 hr 06/08/18 06/08/18 06/08/18 00:05 00:05 00:05 WBC 13.9 H RBC 4.82 Hgb 15.1 Hct 45.6 MCV 94.4 MCH 31.3 MCHC 33.1 RDW 19.1 H Plt Count 237 MPV 7.9 Neut % (Auto) 78.6 H Lymph % (Auto) 12.4 [place] % (Auto) 6.0 Eos % (Auto) 2.5 Baso % (Auto) 0.5 Neut # (Auto) 11.0 H Lymph # (Auto) 1.7 [place] # (Auto) 0.8 Eos # (Auto) 0.3 Baso # (Auto) 0.1 WBC Differential . Differential Comment Auto diff final PT 10.6 INR 1.0 APTT 28.0 D-Dimer Quant (PE/DVT) 1.28 H Sodium Potassium Chloride Carbon Dioxide Anion Gap BUN Creatinine Estimated GFR Random Glucose Calcium Magnesium Total Bilirubin AST ALT Alkaline Phosphatase Total Creatine Kinase Troponin I B-Natriuretic Peptide 213 H Total Protein Albumin Triglycerides Cholesterol LDL Cholesterol, Calc HDL Cholesterol Cholesterol/HDL Ratio Lipase Urine Color Urine Clarity Urine pH Ur Specific [place] Urine Protein Urine Glucose (UA) Urine Ketones Urine Occult Blood Urine Nitrate Urine Bilirubin Urine Urobilinogen Ur Leukocyte Esterase Urine RBC Urine WBC Micro UA Comment Ur Microscopic Review Urine Culture Comments 06/08/18 06/08/18 06/08/18 00:05 03:35 04:32 WBC RBC Hgb Hct MCV MCH MCHC RDW Plt Count MPV Neut % (Auto) Lymph % (Auto) [place] % (Auto) Eos % (Auto) Baso % (Auto) Neut # (Auto) Lymph # (Auto) [place] # (Auto) Eos # (Auto) Baso # (Auto) WBC Differential Differential Comment PT INR APTT D-Dimer Quant (PE/DVT) Sodium 136 Potassium 3.5 Chloride 99 Carbon Dioxide 25.5 Anion Gap 12 BUN 36 H Creatinine 2.88 H Estimated GFR 22 L Random Glucose 106 Calcium 7.8 L Magnesium 1.9 Total Bilirubin 0.5 AST 33 ALT 51 Alkaline Phosphatase 70 Total Creatine Kinase 51 32 L Troponin I Less than 0.02 L Less than 0.02 L B-Natriuretic Peptide Total Protein 6.7 Albumin 3.0 L Triglycerides Cholesterol LDL Cholesterol, Calc HDL Cholesterol Cholesterol/HDL Ratio Lipase 367 Urine Color Yellow Urine Clarity Clear Urine pH 6.0 Ur Specific [place] 1.012 Urine Protein 500 or greater Urine Glucose (UA) 50 Urine Ketones Trace H Urine Occult Blood Negative Urine Nitrate Negative Urine Bilirubin Negative Urine Urobilinogen Less than 2 Ur Leukocyte Esterase Negative Urine RBC 1 Urine WBC 1 Micro UA Comment Culture not ind Ur Microscopic Review Not Reportable Urine Culture Comments Culture not ind 06/08/18 06/08/18 06:45 06:45 WBC RBC Hgb Hct MCV MCH MCHC RDW Plt Count MPV Neut % (Auto) Lymph % (Auto) [place] % (Auto) Eos % (Auto) Baso % (Auto) Neut # (Auto) Lymph # (Auto) [place] # (Auto) Eos # (Auto) Baso # (Auto) WBC Differential Differential Comment PT INR APTT D-Dimer Quant (PE/DVT) Sodium Potassium Chloride Carbon Dioxide Anion Gap BUN Creatinine Estimated GFR Random Glucose Calcium Magnesium Total Bilirubin AST ALT Alkaline Phosphatase Total Creatine Kinase 34 L Troponin I Less than 0.02 L Cancelled B-Natriuretic Peptide Total Protein Albumin Triglycerides 230 H Cholesterol 185 LDL Cholesterol, Calc 91 HDL Cholesterol 47.6 Cholesterol/HDL Ratio 3.88 Lipase Urine Color Urine Clarity Urine pH Ur Specific [place] Urine Protein Urine Glucose (UA) Urine Ketones Urine Occult Blood Urine Nitrate Urine Bilirubin Urine Urobilinogen Ur Leukocyte Esterase Urine RBC Urine WBC Micro UA Comment Ur Microscopic Review Urine Culture Comments - Imaging Impressions Chest X-Ray 06/08/18 00:02 CONCLUSION: Cardiomegaly. No acute pulmonary disease. Pulmonary Perfusion Imaging 06/08/18 03:35 CONCLUSION: 1. Low probably for pulmonary embolism Venous Doppler Study 06/08/18 03:35 CONCLUSION: No evidence of deep venous thrombosis. Abdomen/Pelvis CT 06/08/18 05:40 CONCLUSION: No evidence of acute abdominal or pelvic process. No masses are identified. 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 <Roberta Wolfe - Last Filed: 06/08/18 13:25> - Labs CBC & Chem 7: 06/08/18 00:05 06/08/18 00:05 Labs: Laboratory Results - last 24 hr 06/08/18 06/08/18 06/08/18 00:05 00:05 00:05 WBC 13.9 H RBC 4.82 Hgb 15.1 Hct 45.6 MCV 94.4 MCH 31.3 MCHC 33.1 RDW 19.1 H Plt Count 237 MPV 7.9 Neut % (Auto) 78.6 H Lymph % (Auto) 12.4 [place] % (Auto) 6.0 Eos % (Auto) 2.5 Baso % (Auto) 0.5 Neut # (Auto) 11.0 H Lymph # (Auto) 1.7 [place] # (Auto) 0.8 Eos # (Auto) 0.3 Baso # (Auto) 0.1 WBC Differential . Differential Comment Auto diff final PT 10.6 INR 1.0 APTT 28.0 D-Dimer Quant (PE/DVT) 1.28 H Sodium Potassium Chloride Carbon Dioxide Anion Gap BUN Creatinine Estimated GFR Random Glucose Calcium Magnesium Total Bilirubin AST ALT Alkaline Phosphatase Total Creatine Kinase Troponin I B-Natriuretic Peptide 213 H Total Protein Albumin Triglycerides Cholesterol LDL Cholesterol, Calc HDL Cholesterol Cholesterol/HDL Ratio Lipase Urine Color Urine Clarity Urine pH Ur Specific [place] Urine Protein Urine Glucose (UA) Urine Ketones Urine Occult Blood Urine Nitrate Urine Bilirubin Urine Urobilinogen Ur Leukocyte Esterase Urine RBC Urine WBC Micro UA Comment Ur Microscopic Review Urine Culture Comments 06/08/18 06/08/18 06/08/18 00:05 03:35 04:32 WBC RBC Hgb Hct MCV MCH MCHC RDW Plt Count MPV Neut % (Auto) Lymph % (Auto) [place] % (Auto) Eos % (Auto) Baso % (Auto) Neut # (Auto) Lymph # (Auto) [place] # (Auto) Eos # (Auto) Baso # (Auto) WBC Differential Differential Comment PT INR APTT D-Dimer Quant (PE/DVT) Sodium 136 Potassium 3.5 Chloride 99 Carbon Dioxide 25.5 Anion Gap 12 BUN 36 H Creatinine 2.88 H Estimated GFR 22 L Random Glucose 106 Calcium 7.8 L Magnesium 1.9 Total Bilirubin 0.5 AST 33 ALT 51 Alkaline Phosphatase 70 Total Creatine Kinase 51 32 L Troponin I Less than 0.02 L Less than 0.02 L B-Natriuretic Peptide Total Protein 6.7 Albumin 3.0 L Triglycerides Cholesterol LDL Cholesterol, Calc HDL Cholesterol Cholesterol/HDL Ratio Lipase 367 Urine Color Yellow Urine Clarity Clear Urine pH 6.0 Ur Specific [place] 1.012 Urine Protein 500 or greater Urine Glucose (UA) 50 Urine Ketones Trace H Urine Occult Blood Negative Urine Nitrate Negative Urine Bilirubin Negative Urine Urobilinogen Less than 2 Ur Leukocyte Esterase Negative Urine RBC 1 Urine WBC 1 Micro UA Comment Culture not ind Ur Microscopic Review Not Reportable Urine Culture Comments Culture not ind 06/08/18 06/08/18 06:45 06:45 WBC RBC Hgb Hct MCV MCH MCHC RDW Plt Count MPV Neut % (Auto) Lymph % (Auto) [place] % (Auto) Eos % (Auto) Baso % (Auto) Neut # (Auto) Lymph # (Auto) [place] # (Auto) Eos # (Auto) Baso # (Auto) WBC Differential Differential Comment PT INR APTT D-Dimer Quant (PE/DVT) Sodium Potassium Chloride Carbon Dioxide Anion Gap BUN Creatinine Estimated GFR Random Glucose Calcium Magnesium Total Bilirubin AST ALT Alkaline Phosphatase Total Creatine Kinase 34 L Troponin I Less than 0.02 L Cancelled B-Natriuretic Peptide Total Protein Albumin Triglycerides 230 H Cholesterol 185 LDL Cholesterol, Calc 91 HDL Cholesterol 47.6 Cholesterol/HDL Ratio 3.88 Lipase Urine Color Urine Clarity Urine pH Ur Specific [place] Urine Protein Urine Glucose (UA) Urine Ketones Urine Occult Blood Urine Nitrate Urine Bilirubin Urine Urobilinogen Ur Leukocyte Esterase Urine RBC Urine WBC Micro UA Comment Ur Microscopic Review Urine Culture Comments - Imaging Impressions Chest X-Ray 06/08/18 00:02 CONCLUSION: Cardiomegaly. No acute pulmonary disease. Pulmonary Perfusion Imaging 06/08/18 03:35 CONCLUSION: 1. Low probably for pulmonary embolism Venous Doppler Study 06/08/18 03:35 CONCLUSION: No evidence of deep venous thrombosis. Abdomen/Pelvis CT 06/08/18 05:40 CONCLUSION: No evidence of acute abdominal or pelvic process. No masses are identified. 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 <Rodney Santos E - Last Filed: 06/08/18 18:53> Assessment and Plan (1) Black tarry stools Status: Acute Code(s): K92.1 - Melena (2) Nausea & vomiting Status: Acute Code(s): R11.2 - Nausea with vomiting, unspecified - Plan This patient is a 63-year-old male who presented to the emergency room at [facility] on 06/08/2018 with complaining of burning chest wall pain times 1 week with nausea vomiting and loose stool. Patient was given Protonix and IV fluid bolus with Zofran which relieved his chest wall pain. Upon consultation patient endorses epigastric pressure with burning ongoing times 1 month. He is has associated decreased appetite and nausea. Patient also reports stools have been "black like charcoal" for 1 week. Patient denies ever having had EGD/colonoscopy in the past. He endorses frequent episodes of heartburn for which he takes [id number] antacids. Patient denies any dysphasia or odynophagia. Patient denies any use of NSAIDs or aspirin or blood thinners. Patient states he stops tobacco use 3 years ago but does state that he drinks 1-2 glasses of wine nightly with dinner. Surgical history includes appendectomy as a child. Medical history includes hypertension and gout. Abdominal plain/black tarry stools Patient reports burning chest wall pain with dark ( black) stools for 1 week. Associated nausea without vomiting. WBC 13.9 hemoglobin 15.1 hematocrit 45.6 platelet count [address] abdomen and pelvis--No evidence of acute abdominal or pelvic process. No masses are identified. 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 Discussed plan for EGD with patient who verbalized understanding and agreement Plan -N.p.o.-patient had breakfast 08 30 this a.m. -Obtain consent for EGD -EGD planned for today -Avoid anticoagulants -PPI -Antiemetic as ordered -Supportive care -Monitor for bleeding -Further recommendations to follow based on patient status and findings This patient has been seen by myself and Dr. Santos and this note is written on his behalf - Attending Attestation Dr. Santos <Roberta Wolfe - Last Filed: 06/08/18 13:25> (1) Black tarry stools Status: Acute Code(s): K92.1 - Melena (2) Nausea & vomiting Status: Acute Code(s): R11.2 - Nausea with vomiting, unspecified - Plan Patient seen and examined Agree with above Continue with current supportive care Monitor labs We will proceed with an EGD next <Rodney Santos E - Last Filed: 06/08/18 18:53> <Roberta Wolfe - Last Filed: 06/08/18 13:25> (2) Nausea & vomiting Qualifiers: Vomiting type: unspecified Vomiting Intractability: unspecified Qualified Code(s): R11.2 - Nausea with vomiting, unspecified <Rodney Santos E - Last Filed: 06/08/18 18:53> (2) Nausea & vomiting Qualifiers: Vomiting type: unspecified Vomiting Intractability: unspecified Qualified Code(s): R11.2 - Nausea with vomiting, unspecified
--- NOTE | 2018-06-08 19:20 | P.PCN ---
Date of procedure: 06/08/18 Pre-op diagnosis: Heartburn, melena, nausea vomiting, diarrhea, atypical chest pain Procedure: PROCEDURE PERFORMED EGD with biopsies PROCEDURE: The procedure, risks and benefits were discussed with Patient/POA and informed consent was obtained. Anesthesia sedated Patient with Diprivan. Patient was placed in the left lateral decubitus position. EGD: The Pentax videoscope was introduced through the oropharynx and advanced to the second portion of the duodenum under direct visualization. Retroflexion was performed in the stomach. FINDINGS: The esophagus this looked normal The stomach there were multiple ulcerations noted mainly though in the cardia and the antrum all superficial clean base no visible vessel but with quite a bit of inflammation with edema and so antral biopsies and biopsies from the cardia were taken The duodenum also in the duodenum were multiple ulcers in the duodenal bulb and descending duodenum clean base no visible vessel multiple biopsies were taken ESTIMATED BLOOD LOSS: None SPECIMENS REMOVED: Gastric and duodenal biopsies COMPLICATIONS: None IMPRESSION: Gastric ulcers Duodenal ulcers PLAN: We will check the gastrin level We will increase pantoprazole to twice daily We will continue with current supportive care Will start with clear liquid diet and advance as tolerated Avoid NSAIDs and aspirin EGD in 2 months Anesthesia: MAC Surgeon: Rodney Santos Condition: stable Disposition: floor
--- NOTE | 2018-06-08 20:45 | ECG ---
Date Performed: 06/07/2018 Time Performed: 23:54:14 PTAGE: 63 years EKG: SINUS BRADYCARDIA MODERATE ST DEPRESSION ABNORMAL ECG PREVIOUS TRACING :11/09/2015 @16.21 Compared to previous tracing, ST depression is new Clinical c orrelation is recommended for possible ischemia DOCTOR: Moe Diaz Interpretating Date/Time 06/08/2018 20:44:41
[2018-06-09] MEDS: Sod Chloride 0.9% Inj 1,000 ML IV.CONT SCH ×2 (01:04→13:16)
--- NOTE | 2018-06-09 01:22 | MB ---
cc: Alfonso Garcia DO DATE: 06/09/2018 REASON FOR CONSULTATION: Chest pain. HISTORY OF PRESENT ILLNESS: Kofi Childress is a pleasant 63-year-old male who presented to [facility] due to nausea, vomiting, diarrhea, and chest pain. He states that he has had multiple episodes for the past year nearly every week where he will have diarrhea, nausea and vomiting. During this past week, he has had nausea and vomiting with black tarry stools. During these episodes, he feels some chest pain. He was given Protonix, IV fluids and Zofran, which relieved both his epigastric and chest pain. In seeing only, he is currently hemodynamically stable and denies any symptoms. EKG was done and showed nonspecific ST changes, which he has had similar in the past. PAST MEDICAL HISTORY: 1. Chronic kidney disease. 2. Gout. 3. Hemorrhoids. 4. Hypertension. PAST SURGICAL HISTORY: Appendectomy. ALLERGIES: NO KNOWN DRUG ALLERGIES. MEDICATIONS: 1. Atenolol 50 mg daily. 2. Norvasc 10 mg daily. 3. Lisinopril 40 mg daily. FAMILY HISTORY: Positive for coronary artery disease. Denies sudden cardiac within the family. SOCIAL HISTORY: The patient is a former smoker. He drinks 2-4 times per month. Denies drug abuse. REVIEW OF SYSTEMS: Fourteen systems were reviewed including osteopathic. Pertinent positives and negatives above, otherwise negative. PHYSICAL EXAMINATION: VITAL SIGNS: Temperature 98.1, heart rate 58, blood pressure 116/64, respirations 18, pulse oximetry 98% on room air. GENERAL: The patient appears well, in no acute distress. Alert, awake and oriented x3. HEENT: Extraocular muscles intact. Mucous membranes moist. NECK: Supple. No JVD at 45 degrees. No carotid bruits heard bilaterally. Carotid upstroke is brisk in nature. HEART: Regular rate and rhythm. Positive first and second heart sounds with no noted murmurs, gallops or rubs. LUNGS: Clear to auscultation bilaterally. No wheezes, rales or rhonchi. ABDOMEN: Soft, nontender, nondistended. No organomegaly noted. EXTREMITIES: Show no clubbing, cyanosis or edema. Femoral and distal pulses intact bilaterally. NEUROLOGIC: No focal deficits. SKIN: Warm, dry and intact. OSTEOPATHIC: No kyphoscoliosis, lordosis or paraspinal tender points. LABORATORY DATA: Hemoglobin 15.1, hematocrit 45.6, platelets 237. Potassium 3.5, BUN 36, creatinine 2.88. Troponin negative x3. DIAGNOSTIC DATA: Electrocardiogram (06/07/2018 at 23:54): Sinus bradycardia, nonspecific ST-T wave changes felt to be similar to previous EKG from 2016. ASSESSMENT: 1. Epigastric pain, nausea and vomiting leading to chest pain. 2. Diarrhea with black tarry stools. 3. Chronic kidney disease. 4. Hypertension. 5. Mild bradycardia. RECOMMENDATIONS: 1. Mr. Childress presented initially with GI symptoms concerning for possible ulcer with black tarry stools. 2. He did develop some chest pain, but the chest pain was associated with his epigastric pain and relieved with Zofran and Protonix. 3. EKG was read as abnormal with minimal ST depressions and overall I believe this is similar to his EKG in 2016. 4. Would have him undergo GI workup if possible, as I would be unable to place him on dual antiplatelet therapy, anticoagulation or IIb/IIIa inhibitors if necessary. 5. Ultimately, I believe that his symptoms are all GI in nature. 6. If GI workup is negative, would consider further ischemic workup. 7. He was mildly bradycardic throughout the first part of his hospitalization and this is most likely due to increased vagal tone with nausea and vomiting. 8. Further recommendations will be made based on the hospital course. Thank you for allowing me to see [place]. If there are any questions, please do not hesitate to call. Alfonso Garcia DO VGP/sv , 12:31 AM , 12:41 AM
[2018-06-09 07:39] LABS: Baso # (Auto) 0.1 th/mm3 (0.0-0.2); Baso % (Auto) 0.9 % (0.0-2.0); Eos # (Auto) 0.4 th/mm3 (0.0-0.4); Hemoglobin 13.1 gm/dL (13.0-17.0); Lymph # (Auto) 1.4 th/mm3 (1.0-4.8); Lymph % (Auto) 12.3 % (9.0-44.0); Mean Corpuscular HGB Conc 32.8 % (32.0-36.0); Mean Corpuscular Hemoglobin 32.3 pg (27.0-34.0); Mean Corpuscular Volume 98.2 fL (80.0-100.0); Mean Platelet Volume 7.5 fL (7.0-11.0); Mono # (Auto) 0.8 th/mm3 (0.0-0.9); Mono % (Auto) 7.6 % (0.0-8.0); Neut # (Auto) 8.4 th/mm3 (1.8-7.7); Neut % (Auto) 75.2 % (16.0-70.0); Platelet Count 217 th/mm3 (150-450); Red Blood Count 4.07 mil/mm3 (4.50-5.90); Red Cell Distribution Width 19.5 % (11.6-17.2); White Blood Count 11.2 th/mm3 (4.0-11.0)
[2018-06-09] MEDS: Sodium Chloride 0.9% 2 ML Flush BID IV.FLUSH SCH (08:06)
[2018-06-09 08:16] LABS: Albumin 2.7 g/dL (3.4-5.0); Calcium 7.3 mg/dL (8.5-10.1); Carbon Dioxide 24.9 meq/L (21.0-32.0); Potassium 3.3 meq/L (3.5-5.1)
[2018-06-09] MEDS: Atenolol 50 MG Tablet PO SCH (08:56)
[2018-06-09] MEDS ORDERED: Aspirin 325 MG Tablet PO SCH (09:00)
[2018-06-09] MEDS: amLODIPine 10 MG Tablet PO SCH (09:00)
[2018-06-09] MEDS: Lisinopril 20 MG Tablet PO SCH (09:00)
[2018-06-09] MEDS: Senna/Docusate Sodium 8.6/50 MG Tablet PO SCH (09:01)
--- NOTE | 2018-06-09 14:20 | P.PNGI ---
Subjective Interval history: Pt is resting in bed, no melena, no hematochezia, no abd pain, no N/V <Valarie Charles - Last Filed: 06/09/18 14:13> Physical Exam Vital signs: Vital Signs 06/08/18 15:30 06/08/18 17:01 06/08/18 19:25 Temperature 98.1 F 98.2 F Pulse Rate 52 L 47 L 65 Respiratory Rate 18 16 Blood Pressure 160/80 H 148/75 H Pulse Oximetry 100 95 06/08/18 19:30 06/08/18 19:45 06/08/18 20:00 Temperature 98.6 F 98.2 F Pulse Rate 65 64 65 Respiratory Rate 16 16 18 Blood Pressure 135/77 128/79 142/84 H Pulse Oximetry 96 94 L 96 06/09/18 00:00 06/09/18 04:00 06/09/18 08:00 Temperature 99.1 F 98.3 F 98.7 F Pulse Rate 52 L 57 L 53 L Respiratory Rate 18 18 20 Blood Pressure 158/78 H 156/70 H 164/89 H Pulse Oximetry 98 96 100 06/09/18 09:00 06/09/18 12:00 06/09/18 12:23 Temperature 98.4 F Pulse Rate 49 L 48 L Respiratory Rate 20 Blood Pressure 133/78 Pulse Oximetry 97 97 Intake & Output 06/08/18 06/09/18 06/09/18 18:59 06:59 18:59 Intake Total 1000 / 1000 1200 / 1200 700 / 700 Balance 1000 / 1000 1200 / 1200 700 / 700 Weight 91.6 kg Intake: IV 1000 / 1000 1000 / 1000 700 / 700 NS Inj 1,000 ML @ 84 mls/hr IV. 1000 / 1000 700 / 700 CONT .[id number] KASSANDRA Rx#:[id number] NS Inj 1,000 ML @ 1000 mls/hr 1000 / 1000 IV.SIG BOLUS KASSANDRA Rx#:[id number] Anesthesia Amount 200 / 200 Other: # Voids 1 1 Narrative: GENERAL: AAOx3, no acute distress SKIN: Warm and dry, no rashes. HEAD: Atraumatic. Normocephalic. NECK: Trachea midline. No JVD. Thyroid size within normal limits. CARDIOVASCULAR: Regular rate and rhythm. No murmur, no gallops, no rubs. RESPIRATORY: Clear and equal to auscultation bilaterally. No crackles, no wheezes. No accessory muscle use. GASTROINTESTINAL: Abdomen soft, non-tender, nondistended, normal active bowel sounds. Hepatic and splenic margins not palpable. MUSCULOSKELETAL: Extremities without clubbing or cyanosis. No obvious deformities. No edema. NEUROLOGICAL: Awake and alert. PSYCHIATRIC: Appropriate mood and affect; insight and judgment normal. <Valarie Charles - Last Filed: 06/09/18 14:13> Vital signs: Vital Signs 06/08/18 17:01 06/08/18 19:25 06/08/18 19:30 Temperature 98.2 F Pulse Rate 47 L 65 65 Respiratory Rate 16 16 Blood Pressure 148/75 H 135/77 Pulse Oximetry 95 96 06/08/18 19:45 06/08/18 20:00 06/09/18 00:00 Temperature 98.6 F 98.2 F 99.1 F Pulse Rate 64 65 52 L Respiratory Rate 16 18 18 Blood Pressure 128/79 142/84 H 158/78 H Pulse Oximetry 94 L 96 98 06/09/18 04:00 06/09/18 08:00 06/09/18 09:00 Temperature 98.3 F 98.7 F Pulse Rate 57 L 53 L 49 L Respiratory Rate 18 20 Blood Pressure 156/70 H 164/89 H Pulse Oximetry 96 100 06/09/18 12:00 06/09/18 12:23 Temperature 98.4 F Pulse Rate 48 L Respiratory Rate 20 Blood Pressure 133/78 Pulse Oximetry 97 97 Intake & Output 06/08/18 06/09/18 06/09/18 18:59 06:59 18:59 Intake Total 1000 / 1000 1200 / 1200 1600 / 1600 Balance 1000 / 1000 1200 / 1200 1600 / 1600 Weight 91.6 kg Intake: IV 1000 / 1000 1000 / 1000 1600 / 1600 NS Inj 1,000 ML @ 84 mls/hr IV. 1000 / 1000 1600 / 1600 CONT .[id number] KASSANDRA Rx#:[id number] NS Inj 1,000 ML @ 1000 mls/hr 1000 / 1000 IV.SIG BOLUS KASSANDRA Rx#:[id number] Anesthesia Amount 200 / 200 Other: # Voids 1 1 <Sophia Lombardi - Last Filed: 06/09/18 15:42> Results - Labs CBC & Chem 7: 06/09/18 07:13 11/03/18 07:13 Laboratory Results - last 24 hr 06/09/18 06/09/18 07:13 07:13 WBC 11.2 H RBC 4.07 L Hgb 13.1 D Hct 40.0 MCV 98.2 D MCH 32.3 MCHC 32.8 RDW 19.5 H Plt Count 217 MPV 7.5 Neut % (Auto) 75.2 H Lymph % (Auto) 12.3 [place] % (Auto) 7.6 Eos % (Auto) 4.0 Baso % (Auto) 0.9 Neut # (Auto) 8.4 H Lymph # (Auto) 1.4 [place] # (Auto) 0.8 Eos # (Auto) 0.4 Baso # (Auto) 0.1 WBC Differential . Differential Comment Auto diff final Sodium 139 Potassium 3.3 L Chloride 106 Carbon Dioxide 24.9 Anion Gap 8 BUN 33 H Creatinine 2.96 H Estimated GFR 22 L Random Glucose 95 Calcium 7.3 L* Prot Corrected Calcium 7.9 L Total Bilirubin 0.5 AST 23 ALT 45 Alkaline Phosphatase 61 Total Protein 6.0 L D Albumin 2.7 L <KalajoeyValarie - Last Filed: 06/09/18 14:13> - Labs CBC & Chem 7: 06/09/18 07:13 06/09/18 07:13 Laboratory Results - last 24 hr 06/09/18 06/09/18 07:13 07:13 WBC 11.2 H RBC 4.07 L Hgb 13.1 D Hct 40.0 MCV 98.2 D MCH 32.3 MCHC 32.8 RDW 19.5 H Plt Count 217 MPV 7.5 Neut % (Auto) 75.2 H Lymph % (Auto) 12.3 [place] % (Auto) 7.6 Eos % (Auto) 4.0 Baso % (Auto) 0.9 Neut # (Auto) 8.4 H Lymph # (Auto) 1.4 [place] # (Auto) 0.8 Eos # (Auto) 0.4 Baso # (Auto) 0.1 WBC Differential . Differential Comment Auto diff final Sodium 139 Potassium 3.3 L Chloride 106 Carbon Dioxide 24.9 Anion Gap 8 BUN 33 H Creatinine 2.96 H Estimated GFR 22 L Random Glucose 95 Calcium 7.3 L* Prot Corrected Calcium 7.9 L Total Bilirubin 0.5 AST 23 ALT 45 Alkaline Phosphatase 61 Total Protein 6.0 L D Albumin 2.7 L <Sophia Lombardi - Last Filed: 06/09/18 15:42> Assessment and Plan (1) Black tarry stools Status: Acute Code(s): K92.1 - Melena (2) Nausea & vomiting Status: Acute Code(s): R11.2 - Nausea with vomiting, unspecified - Plan Abdominal plain/black tarry stools/ Gastric and duodenal ulcers- No more bleeding, hgb stable CT abdomen and pelvis--No evidence of acute abdominal or pelvic process. No masses are identified. 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 S/p EGD on 06/08 --->Gastric ulcers, Duodenal ulcers Plan Advance diet gastrin level pending pantoprazole to twice daily supportive care Avoid NSAIDs and aspirin EGD in 2 months Ok to dc home from GI standpoint and f/u with GI upon discharge This patient has been seen by myself and Dr. Lombardi and this note is written on her behalf <Valarie Charles - Last Filed: 06/09/18 14:13> (1) Black tarry stools Status: Acute Code(s): K92.1 - Melena (2) Nausea & vomiting Status: Acute Code(s): R11.2 - Nausea with vomiting, unspecified - Attending Attestation seen, examined agree with above will need colonoscopy for screening too , can be done same time with egd <Sophia Lombardi - Last Filed: 06/09/18 15:42> <Valarie Charles - Last Filed: 06/09/18 14:13> (2) Nausea & vomiting Qualifiers: Vomiting type: unspecified Vomiting Intractability: unspecified Qualified Code(s): R11.2 - Nausea with vomiting, unspecified <Sophia Lombardi - Last Filed: 06/09/18 15:42> (2) Nausea & vomiting Qualifiers: Vomiting type: unspecified Vomiting Intractability: unspecified Qualified Code(s): R11.2 - Nausea with vomiting, unspecified
--- NOTE | 2018-06-09 15:23 | P.DS ---
Date of admission: 06/08/18 11:30 Primary care physician: No Primary Care Physician Brief History from admission: 63-year-old male presented to the ER overnight with complaint of chest pain following 1 week of nausea vomiting and diarrhea. Initial screening in the ER showed an EKG that demonstrated mild ST depressions. He was given Protonix and IV fluid bolus with Zofran which resolved his chest pain and he is feeling better this morning. He states that his nausea and vomiting and lack of intake caused his blood pressure to go up partly from not having blood pressure meds but also from the stress. He reports that for the last year he has had similar but less severe nausea vomiting and diarrhea episodes nearly every week. He denies cough, fever, upper respiratory congestion. He denies weight gain or weight loss, denies any ingestion of sour food, reports he did have 2 glasses of wine today before the onset of this episode of nausea and vomiting. DS: Medications - Discharge Medications Prescriptions: omeprazole magnesium [Acid [employer] (omeprazole)] 20 mg PO DAILY 30 Days #30 cap pantoprazole 40 mg PO BID 30 Days #60 tab DS: Summary Hospital Course: 63-year-old male who presented to the ER with chest pain, nausea, vomiting underwent an EGD yesterday which showed bleeding ulcers. Cardiology reviewed the EKG and bradycardia and pointed to vasovagal effect of nausea and vomiting. The ST changes were borderline and likely not related to ischemia. He has been cleared by gastroenterology and is in the mood to go home. He has no insurance but understands that he will need to take pantoprazole twice daily for 1 month followed by omeprazole as maintenance dosing to prevent recurrence of ulcers. He is welcome to follow-up with her primary care physician or gastroenterology, but since he is paying byrd that is a weighted decision. - Time Spent with Patient Total time spent providing and/or coordinating discharge services: Less than 30 minutes - Quality: VTE Deep Vein Thrombosis/Pulmonary Embolism Present on Admission: No Exam Vital signs: Vital Signs 06/08/18 15:30 06/08/18 17:01 06/08/18 19:25 Temperature 98.1 F 98.2 F Pulse Rate 52 L 47 L 65 Respiratory Rate 18 16 Blood Pressure 160/80 H 148/75 H Pulse Oximetry 100 95 06/08/18 19:30 06/08/18 19:45 06/08/18 20:00 Temperature 98.6 F 98.2 F Pulse Rate 65 64 65 Respiratory Rate 16 16 18 Blood Pressure 135/77 128/79 142/84 H Pulse Oximetry 96 94 L 96 06/09/18 00:00 06/09/18 04:00 06/09/18 08:00 Temperature 99.1 F 98.3 F 98.7 F Pulse Rate 52 L 57 L 53 L Respiratory Rate 18 18 20 Blood Pressure 158/78 H 156/70 H 164/89 H Pulse Oximetry 98 96 100 06/09/18 09:00 06/09/18 12:00 06/09/18 12:23 Temperature 98.4 F Pulse Rate 49 L 48 L Respiratory Rate 20 Blood Pressure 133/78 Pulse Oximetry 97 97 Intake & Output 06/08/18 06/09/18 06/09/18 18:59 06:59 18:59 Intake Total 1000 / 1000 1200 / 1200 700 / 700 Balance 1000 / 1000 1200 / 1200 700 / 700 Weight 91.6 kg Intake: IV 1000 / 1000 1000 / 1000 700 / 700 NS Inj 1,000 ML @ 84 mls/hr IV. 1000 / 1000 700 / 700 CONT .[id number] KASSANDRA Rx#:[id number] NS Inj 1,000 ML @ 1000 mls/hr 1000 / 1000 IV.SIG BOLUS KASSANDRA Rx#:[id number] Anesthesia Amount 200 / 200 Other: # Voids 1 1 Results Procedures completed during hospitalization: EGD on 06/08/2018 Pending studies at discharge: Pending at discharge 06/08/18 Surgical [PTH] Routine Labs on day of discharge: Labs from last 24 hours 06/09/18 06/09/18 06/09/18 07:13 07:13 07:13 WBC 11.2 H RBC 4.07 L Hgb 13.1 D Hct 40.0 MCV 98.2 D MCH 32.3 MCHC 32.8 RDW 19.5 H Plt Count 217 MPV 7.5 Neut % (Auto) 75.2 H Lymph % (Auto) 12.3 [place] % (Auto) 7.6 Eos % (Auto) 4.0 Baso % (Auto) 0.9 Neut # (Auto) 8.4 H Lymph # (Auto) 1.4 [place] # (Auto) 0.8 Eos # (Auto) 0.4 Baso # (Auto) 0.1 WBC Differential . Differential Comment Auto diff final Sodium 139 Potassium 3.3 L Chloride 106 Carbon Dioxide 24.9 Anion Gap 8 BUN 33 H Creatinine 2.96 H Estimated GFR 22 L Random Glucose 95 Calcium 7.3 L* Prot Corrected Calcium 7.9 L Total Bilirubin 0.5 AST 23 ALT 45 Alkaline Phosphatase 61 Total Protein 6.0 L D Albumin 2.7 L Gastrin Pending - Impressions ITS Impressions Chest X-Ray 06/08/18 00:02 CONCLUSION: Cardiomegaly. No acute pulmonary disease. Pulmonary Perfusion Imaging 06/08/18 03:35 CONCLUSION: 1. Low probably for pulmonary embolism Venous Doppler Study 06/08/18 03:35 CONCLUSION: No evidence of deep venous thrombosis. Abdomen/Pelvis CT 06/08/18 05:40 CONCLUSION: No evidence of acute abdominal or pelvic process. No masses are identified. 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 Discharge Plan - Discharge Disposition Patient Disposition: Discharge Home - Discharge Condition Condition: Good - Discharge Order Discharge Orders: Discharge Order (Routine); Ordered 06/09/18 Ordered By: Alfredo Harris - Physicians Team Primary Care Provider: Primary Care Physici,No Attending Provider: Alfredo Harris Other Providers: Alfonso Garcia DO ; Rodney Santos MD
--- NOTE | 2018-06-09 15:25 | P.PNCA ---
Subjective Interval history: No events overnight Feels well, no complaints Medications and Allergies Active Medications: Active Medications Acetaminophen (Tylenol) 650 mg PO Q4H PRN PRN Reason: Temp > 100.4 Al Hydroxide/Mg Hydroxide (Milk Of Magnesia Liq) 30 ml PO Q12H PRN PRN Reason: Mild Constipation Amlodipine Besylate (Norvasc) 10 mg PO DAILY [facility] Last Admin: 06/09/18 09:00 Dose: 10 mg Aspirin (Aspirin) 325 mg PO DAILY [facility] Last Admin: 06/09/18 09:00 Dose: 325 mg Bisacodyl (Dulcolax Supp) 10 mg RECTAL DAILY PRN PRN Reason: SEVERE CONSITIPATION Clonidine HCl (Catapres) 0.1 mg PO Q6H PRN PRN Reason: SBP>180, DBP>95 Sodium Chloride (Ns Inj) 1,000 mls @ 84 mls/hr IV.CONT .[id number] [facility] Last Infusion: 06/09/18 13:17 Dose: 84 mls/hr Lactulose (Lactulose Liq) 30 ml PO DAILY PRN PRN Reason: SEVERE CONSITIPATION Lisinopril (Prinivil) 40 mg PO DAILY [facility] Last Admin: 06/09/18 09:00 Dose: 40 mg Miscellaneous Information ([facility] [place] [facility]) 1 each OTHER UNSCH PRN PRN Reason: SEE LABEL COMMENTS Stop: 06/09/18 19:47 Morphine Sulfate (Morphine Inj) 2 mg IV.PUSH Q4H PRN PRN Reason: PAIN 6-10 Ondansetron HCl (Zofran Inj) 4 mg IV.PUSH Q6H PRN PRN Reason: NAUSEA OR VOMITING Pantoprazole Sodium (Protonix) 40 mg PO BID [facility] Last Admin: 06/09/18 09:00 Dose: 40 mg Pravastatin Sodium (Pravachol) 40 mg PO DAILY [facility] Last Admin: 06/09/18 09:00 Dose: 40 mg Senna/Docusate Sodium (Leda-Colace) 1 tab PO BID [facility] Last Admin: 06/09/18 09:01 Dose: 1 tab Sennosides (Senokot) 17.2 mg PO Q12H PRN PRN Reason: Moderate Constipation Sodium Chloride (Ns Flush) 2 ml IV.FLUSH BID [facility] Last Admin: 06/09/18 08:06 Dose: Not Given Sodium Chloride (Ns Flush) 2 ml IV.FLUSH PRN PRN PRN Reason: FLUSH AFTER USING IV ACCESS Allergies Allergy/AdvReac Type Severity Reaction Status Date / Time No Known Allergies Allergy Uncoded 03/09/17 14:30 Home Medications Medication Instructions Recorded Confirmed Type amlodipine 10 mg PO DAILY 06/08/18 06/08/18 History atenolol 50 mg PO DAILY 06/08/18 06/08/18 History lisinopril 40 mg PO DAILY 06/08/18 06/08/18 History Physical Exam Vital signs: Vital Signs 06/08/18 15:30 06/08/18 17:01 06/08/18 19:25 Temperature 98.1 F 98.2 F Pulse Rate 52 L 47 L 65 Respiratory Rate 18 16 Blood Pressure 160/80 H 148/75 H Pulse Oximetry 100 95 06/08/18 19:30 06/08/18 19:45 06/08/18 20:00 Temperature 98.6 F 98.2 F Pulse Rate 65 64 65 Respiratory Rate 16 16 18 Blood Pressure 135/77 128/79 142/84 H Pulse Oximetry 96 94 L 96 06/09/18 00:00 06/09/18 04:00 06/09/18 08:00 Temperature 99.1 F 98.3 F 98.7 F Pulse Rate 52 L 57 L 53 L Respiratory Rate 18 18 20 Blood Pressure 158/78 H 156/70 H 164/89 H Pulse Oximetry 98 96 100 06/09/18 09:00 06/09/18 12:00 06/09/18 12:23 Temperature 98.4 F Pulse Rate 49 L 48 L Respiratory Rate 20 Blood Pressure 133/78 Pulse Oximetry 97 97 Intake & Output 06/08/18 06/09/18 06/09/18 18:59 06:59 18:59 Intake Total 1000 / 1000 1200 / 1200 700 / 700 Balance 1000 / 1000 1200 / 1200 700 / 700 Weight 91.6 kg Intake: IV 1000 / 1000 1000 / 1000 700 / 700 NS Inj 1,000 ML @ 84 mls/hr IV. 1000 / 1000 700 / 700 CONT .[id number] KASSANDRA Rx#:[id number] NS Inj 1,000 ML @ 1000 mls/hr 1000 / 1000 IV.SIG BOLUS KASSANDRA Rx#:[id number] Anesthesia Amount 200 / 200 Other: # Voids 1 1 Narrative: GENERAL: AAOx3, no acute distress SKIN: Warm and dry, no rashes. HEAD: Atraumatic. Normocephalic. NECK: Trachea midline. No JVD. Thyroid size within normal limits. CARDIOVASCULAR: Regular rate and rhythm. No murmur, no gallops, no rubs. RESPIRATORY: Clear and equal to auscultation bilaterally. No crackles, no wheezes. No accessory muscle use. GASTROINTESTINAL: Abdomen soft, non-tender, nondistended, normal active bowel sounds. Hepatic and splenic margins not palpable. MUSCULOSKELETAL: Extremities without clubbing or cyanosis. No obvious deformities. No edema. NEUROLOGICAL: Awake and alert. PSYCHIATRIC: Appropriate mood and affect; insight and judgment normal. Results 06/09/18 07:13 06/09/18 07:13 Cardiac Enzymes 06/08/18 06/08/18 06/08/18 Range/Units 00:05 00:05 04:32 AST 33 (15-37) U/L Troponin I Less than 0.02 L Less than 0.02 L (0.02-0.05) ng/mL B-Natriuretic Peptide 213 H (0-100) pg/mL 06/08/18 06/08/18 06/09/18 Range/Units 06:45 06:45 07:13 AST 23 (15-37) U/L Troponin I Less than 0.02 L Cancelled (0.02-0.05) ng/mL B-Natriuretic Peptide (0-100) pg/mL Coagulation 06/08/18 06/08/18 Range/Units 00:05 00:05 PT 10.6 (9.8-11.6) sec APTT 28.0 (23.4-31.7) sec B-Natriuretic Peptide 213 H (0-100) pg/mL Lipids 06/08/18 Range/Units 06:45 Triglycerides 230 H (42-150) mg/dL Cholesterol 185 (120-200) mg/dL HDL Cholesterol 47.6 (40.0-60.0) mg/dL Cholesterol/HDL Ratio 3.88 Ratio CBC 06/08/18 06/09/18 Range/Units 00:05 07:13 WBC 13.9 H 11.2 H (4.0-11.0) th/mm3 RBC 4.82 4.07 L (4.50-5.90) mil/mm3 Hgb 15.1 13.1 D (13.0-17.0) gm/dL Hct 45.6 40.0 (39.0-51.0) % Plt Count 237 217 (150-450) th/mm3 Neut # (Auto) 11.0 H 8.4 H (1.8-7.7) th/mm3 Lymph # (Auto) 1.7 1.4 (1.0-4.8) th/mm3 [place] # (Auto) 0.8 0.8 (0.0-0.9) th/mm3 Eos # (Auto) 0.3 0.4 (0.0-0.4) th/mm3 Baso # (Auto) 0.1 0.1 (0.0-0.2) th/mm3 Comprehensive Metabolic Panel 06/08/18 06/09/18 Range/Units 00:05 07:13 Sodium 136 139 (136-145) meq/L Potassium 3.5 3.3 L (3.5-5.1) meq/L Chloride 99 106 (98-107) meq/L Carbon Dioxide 25.5 24.9 (21.0-32.0) meq/L BUN 36 H 33 H (7-18) mg/dL Creatinine 2.88 H 2.96 H (0.60-1.30) mg/dL Calcium 7.8 L 7.3 L* (8.5-10.1) mg/dL AST 33 23 (15-37) U/L ALT 51 45 (12-78) U/L Alkaline Phosphatase 70 61 (45-117) U/L Total Protein 6.7 6.0 L D (6.4-8.2) g/dL Albumin 3.0 L 2.7 L (3.4-5.0) g/dL Intake and Output 06/09/18 06/09/18 06/09/18 06:59 14:59 22:59 Intake Total 1000 / 1000 700 / 700 Balance 1000 / 1000 700 / 700 Intake: IV 1000 / 1000 700 / 700 NS Inj 1,000 ML @ 84 mls/hr IV. 1000 / 1000 700 / 700 CONT .[id number] [facility] Rx#:[id number] Other: # Voids 1 Weight 91.6 kg - Imaging and Cardiology Imaging: Impressions Chest X-Ray 06/08/18 00:02 CONCLUSION: Cardiomegaly. No acute pulmonary disease. Pulmonary Perfusion Imaging 06/08/18 03:35 CONCLUSION: 1. Low probably for pulmonary embolism Venous Doppler Study 06/08/18 03:35 CONCLUSION: No evidence of deep venous thrombosis. Abdomen/Pelvis CT 06/08/18 05:40 CONCLUSION: No evidence of acute abdominal or pelvic process. No masses are identified. 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 Assessment and Plan - Assessment (1) Gastric peptic ulcer Code(s): K25.9 - Gastric ulcer, unspecified as acute or chronic, without hemorrhage or perforation Status: Acute (2) Nonspecific ST-T wave electrocardiographic changes Code(s): R94.31 - Abnormal electrocardiogram [ECG] [EKG] Status: Acute (3) Chest pain Code(s): R07.9 - Chest pain, unspecified Status: Acute (4) Nausea & vomiting Code(s): R11.2 - Nausea with vomiting, unspecified Status: Acute (5) Black tarry stools Code(s): K92.1 - Melena Status: Acute - Plan 1) Nausea/emesis EGD showing peptic ulcers 2) Chest pain associated with epigastric pain/emesis Less likely cardiac Relieved with Protonix and Zofran with gastric pain Found to have multiple ulcers Recommended to anticoagulation/NSAIDS No plan for ischemic work up, believed to be due to gastric ulcers 3) Black tarry stools `Secondary to gastric ulcers 4) Possible EKG changes Similar to EKG in 2016 Known moderate LVH on previous echocardiogram 5) Bradycardia Possible increase vagal tone, consider outpatient [facility] eval Heart rate increases when up and moving 6) No further work up from cardiac standpoint (3) Chest pain Qualifiers: Chest pain type: unspecified Qualified Code(s): R07.9 - Chest pain, unspecified (4) Nausea & vomiting Qualifiers: Vomiting type: unspecified Vomiting Intractability: unspecified Qualified Code(s): R11.2 - Nausea with vomiting, unspecified
== END 2018-06-09 16:30 | disposition home or self-care (01) ==
LOC: NEDA 23:25 → NEPE 23:25 → N04 06-08 13:20
PROVIDERS: ADMIT Family Medicine; ATTEND Family Medicine
PROC: PANENDO (2018-06-08 18:54)